=== PATIENT | female | born 1975 | race Caucasian/White ===

== ENCOUNTER → 2016-09-29 | Outpatient (CLI) | payer BC ==
[2016-09-29 13:31] LABS: EKG EKG PERFORMED
[2016-09-29 14:09] LABS: Basophils % (A) 0 %; CH 30.2; CHCM 33.5; Eosinophils # (A) 0.1 k/uL (0-0.7); Eosinophils % (A) 2 %; HCT 39.3 % (34.0-46.0); HDW 2.88; HGB 12.8 gm/dL (11.4-16.0); Luc % (Auto) 1; Lymphocytes # (A) 1.7 k/uL (1.0-4.8); Lymphocytes % (A) 23 %; MCH 29.6 pg (25.0-35.0); MCHC 32.5 g/dL (31.0-37.0); MCV 90.9 fL (80.0-100.0); Mean Platelet Volume 6.5; Monocytes # (A) 0.3 k/uL (0-1.0); Monocytes % (A) 3 %; Neutrophils # (A) 5.2 k/uL (1.3-7.7); Neutrophils % (A) 70 %; RBC 4.33 m/uL (3.80-5.40); RDW 14.4 % (11.5-15.5); WBC 7.4 k/uL (3.8-10.6); WBC (Perox) 7.71
[2016-09-29 14:23] LABS: Blood Urea Nitrogen 39 mg/dL (7-17); Non-African American GFR(MDRD) 20 (>60 ml/min/1.73 sqM); Potassium 4.9 mmol/L (3.5-5.1)
[2016-09-29 14:53] LABS: Hepatitis B Surface Ag Index 0.08
[2016-09-29 14:59] LABS: Hepatitis B Core IgM Index 0.04
[2016-09-29 15:11] LABS: Hepatitis C Virus IgG Index 0.03
[2016-09-29 15:19] LABS: Hepatitis C Virus IgG Ab Negative (Negative)
== END | disposition home or self-care (01) ==
LOC: LABPAT 12:51
PROVIDERS: ATTEND Surgery
DX: Z01.810 Encounter for preprocedural cardiovascular examination (principal); Z01.812 Encounter for preprocedural laboratory examination; I10 Essential (primary) hypertension; R53.83 Other fatigue; N28.9 Disorder of kidney and ureter, unspecified
CPT/HCPCS: 80074; 82565; 84132; 84520; 85025; 93005

== ENCOUNTER 2016-09-30 06:31 | Day surgery (SDC) | payer BC ==
--- NOTE | 2016-09-23 17:11 | P.GSHP ---
History of Present Illness H&P Date: 09/23/16 Chief Complaint: Renal failure Patient seen in the office with complaints of progressive renal failure. 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 Lately she has been symptomatic as it pertains to her renal failure mainly in the area of fatigue. Some swelling as well. She is interested in peritoneal dialysis catheter insertion at this point. She has investigated hemodialysis as well as an option. - Review of Systems Comment: Patient denies any acute changes in hearing or vision, no earache, no headache, no sore throat, no dysphagia, no odynophasia, no chest pain, no shortness of breath, no rectal bleeding, no melena, no recent unexplained weight loss Past Medical History Past Medical History: Diabetes Mellitus, Hyperlipidemia, Hypertension, Musculoskeletal Disorder, Renal Disease Additional Past Medical History / Comment(s): 10/09/14 Pt presented to [facility] ER with c/o kidney infection. Pt was seen in urgent care yesterday and diagnosed with pyelonephritis and given ABX injection, antinausea med and oral ABX. Pt is unable to keep anything down. She has had bilateral back pain the past 3-4 days. She also has had fevers, sweating and chills and vomitting. 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 History of Any Multi-Drug Resistant Organisms: None Reported Past Surgical History: Section, Orthopedic Surgery, Tonsillectomy Additional Past Surgical History / Comment(s): Bilateral ureteral implantations done in [place], L knee arthroscopy, IUD Past Anesthesia/Blood Transfusion Reactions: No Reported Reaction Additional Past Anesthesia/Blood Transfusion Reaction / Comment(s): Pt has never recieved blood. Past Psychological History: Anxiety Additional Psychological History / Comment(s): Pt lives at home with her 2 children. She is normally independent. She uses no assistive devices and has no home care. Smoking Status: Former smoker Past Alcohol Use History: Occasional Additional Past Alcohol Use History / Comment(s): Pt states she quit smoking regularly about 10-11 yrs ago. She will still occasionally smoke a cigarette. She started smoking at age 17 or 18. Past Drug Use History: None Reported - Past Family History Father Family Medical History: Diabetes Mellitus Additional Family Medical History / Comment(s): Father has a pacemaker and is hypoglycemic. Mother Family Medical History: Asthma Sister(s) Family Medical History: Unable to Obtain Daughter(s) Family Medical History: No Reported History Son(s) Family Medical History: No Reported History Medications and Allergies Home Medications Medication Instructions Recorded Confirmed Type Allopurinol [Zyloprim] 100 mg PO DAILY 02/23/14 09/21/16 History Verapamil HCl [Verapamil ER] 180 mg PO HS 02/23/14 09/21/16 History Cetirizine HCl [Zyrtec] 10 mg PO DAILY 10/09/14 09/21/16 History Sertraline [Zoloft] 100 mg PO DAILY 10/09/14 09/21/16 History Fenofibrate [Tricor] 54 mg PO DAILY 07/03/15 09/21/16 History Insulin Glargine,Hum.rec.anlog 35 units SQ DAILY 07/09/15 09/21/16 History [Toujeo Solostar] Dulaglutide [Trulicity] 1.5 mg INJ WEEKLY 03/17/16 09/21/16 History Ergocalciferol [Vitamin D2 50,000 units PO DIRECTED 03/17/16 09/21/16 History (DRISDOL)] Insulin Aspart Protam & Aspart 14 units INJ TID 03/17/16 09/21/16 History [NovoLOG MIX 70-30 Flexpen] Dulaglutide [Trulicity] 1.5 mg SQ WEEKLY 09/14/16 09/21/16 History Multivitamins, Thera [Multivitamin 1 tab PO DAILY 09/14/16 09/21/16 History (formulary)] Sodium Bicarbonate Tab 650 mg PO DAILY 09/14/16 09/21/16 History Allergies Allergy/AdvReac Type Severity Reaction Status Date / Time codeine Allergy HIVES Verified 09/21/16 12:59 Surgical - Exam GENERAL: Well-developed, well-nourished HEENT: Normocephalic, sclera nonicteric, EOM intact, no swelling CHEST: No deformities ABDOMEN: Soft, Obese, nontender, nondistended EXTREMITIES: No deformities, motor grossly intact NEURO: Awake and alert Assessment and Plan (1) Chronic renal failure Narrative/Plan: We'll proceed with peritoneal dialysis catheter insertion. Risks of bleeding, infection, catheter malfunction, bowel injury were discussed. She understands and wishes to proceed. Status: Acute
[2016-09-28 13:41] VITALS: BMI 42.1
[~2016-09-30 06:31] MED LIST: HEPARIN SODIUM,PORCINE 5,000 UNIT/ML 1 ML VIAL SQ ONE; LACTATED RINGERS 1,000 ML IV SCH; LIDOCAINE 1% 20 ML VIAL (10MG/ML) FOR IV START INTRADERMA PRN; ONDANSETRON 4 MG/2 ML VIAL IVP ONE; ceFAZolin 3 GM in SODIUM CHLORIDE 0.9% 100 ML IVPB ONE; fentaNYL (PF) 50 MCG/ML 2 ML AMP IV PRN
[2016-09-30 07:34] LABS: Glucose,Whole Blood 190 mg/dL (75-99)
[2016-09-30] MEDS ORDERED: SUCCINYLCHOLINE CHLORIDE 100 MG/5 ML SYR IV ONE (07:43)
[2016-09-30] MEDS ORDERED: PROPOFOL 10 MG/ML 20 ML VIAL IV ONE (07:43)
[2016-09-30] MEDS ORDERED: HYDROmorphone (PF) 1 MG/ML ONE (07:43)
[2016-09-30] MEDS ORDERED: fentaNYL (PF) 50 MCG/ML 2 ML AMP ONE (07:43)
[2016-09-30] MEDS ORDERED: MIDAZOLAM 2 MG/2 ML VIAL ONE (07:43)
[2016-09-30] MEDS ORDERED: PHENYLEPHRINE-0.9% NACL SYG 1 MG/10 ML SYRINGE ONE (07:43)
[2016-09-30] MEDS ORDERED: BUPIVACAIN-EPI 0.25%-1:200,000 30 ML VIAL SQ ONE ×2 (07:49)
[2016-09-30] MEDS ORDERED: MINERAL OIL 1 APPLIC/ML OIL TOPICAL ONE (07:49)
[2016-09-30 09:05] VITALS: TEMP 98.2
[2016-09-30 09:10] LABS: Glucose,Whole Blood 157 mg/dL (75-99)
[2016-09-30] MEDS ORDERED: NALOXONE 0.4 MG/ML 1 ML VIAL IV PRN (09:29)
[2016-09-30] MEDS ORDERED: HYDROcodone/APAP 5-325MG 1 EACH TAB PO PRN (09:29)
--- NOTE | 2016-09-30 09:31 | P.PCN ---
Date of Procedure: 09/30/16 Procedure(s) Performed: PREOPERATIVE DIAGNOSIS: Renal failure POSTOPERATIVE DIAGNOSIS: Same PROCEDURE: Peritoneal dialysis catheter insertion SURGEON: Gerardo EBL: Minimal ANESTHESIA: Sedation plus local COMPLICATIONS: None OPERATIVE PROCEDURE: The patient was placed in the operative table in the supine position. Her abdomen was prepped and draped in usual sterile fashion. A small horizontal incision was made in the left periumbilical location. Dissection down through the subcutaneous tissues took place using electrocautery. The anterior rectus was divided vertically using the scalpel. The rectus was bluntly. The posterior rectus was visualized. An 0 Vicryl pursestring was placed. A small opening in the posterior rectus fascia and peritoneum took place using a Metzenbaum scissors. There were no adhesions to the suture that was placed. The pigtail catheter was advanced into the pelvis over a stylette. No resistance was met. The inner cuff was secured to the fascia using the 0 Vicryl pursestring that was placed. The catheter was tunneled to an exit site in the left lateral lower quadrant. The catheter was connected to the 1 L bag of saline and approximated 800 mL of saline was easily introduced into the peritoneal cavity. The fluid was then allowed to evacuate. The majority of the fluid was returned. The anterior rectus fascia was then reapproximated using a running 0 Vicryl stitch. The subcutaneous tissues reprepped using 3-0 Vicryl sutures and the skin using 4-0 Monocryl sutures. The outpatient dialysis adapter was applied to the end of the catheter. A sterile dressings then applied after Steri-Strips were placed over the incision. DISPOSITION: Stable to recovery room
[2016-09-30] MEDS ORDERED: traMADol 50 MG TAB PO ONE (09:56)
[2016-09-30 09:59] LABS: Glucose,Whole Blood 166 mg/dL (75-99)
[2016-09-30 10:37] VITALS: BP 97/65; PULSE 69; RESP 20
== END 2016-09-30 10:44 | disposition home or self-care (01) ==
LOC: OR 06:31
PROVIDERS: ATTEND Surgery
DX: I12.9 Hypertensive chronic kidney disease with stage 1 through stage 4 chronic kidney disease, or unspecified chronic kidney disease (principal); N18.9 Chronic kidney disease, unspecified; E11.9 Type 2 diabetes mellitus without complications; E78.5 Hyperlipidemia, unspecified; F41.9 Anxiety disorder, unspecified; E66.9 Obesity, unspecified; Z79.4 Long term (current) use of insulin; Z79.899 Other long term (current) drug therapy; Z88.5 Allergy status to narcotic agent; Z87.891 Personal history of nicotine dependence
CPT/HCPCS: 81025; 49421; C1752; J2250; J1644; J0690; J2405; J3010; J1170; J2370; J0330; J2704

== ENCOUNTER → 2016-12-01 | Outpatient (CLI) | payer BC ==
--- NOTE | 2016-12-01 12:47 | XR ---
EXAMINATION TYPE: XR abdomen 1V DATE OF EXAM: 12/01/2016 COMPARISON: 10/09/2014 HISTORY: Pain TECHNIQUE: Single supine KUB image of the abdomen is obtained FINDINGS: Within the pelvis dialysis catheter is noted in place. IUD is also identified. Small bowel demonstrates no evidence for dilatation or air fluid levels. Gas and fecal material is seen in non-distended colon. No convincing evidence for pneumoperitoneum. Left renal calculus is again noted measuring approximately 4 mm. The lung bases are clear. The osseous structures are intact. IMPRESSION: 1. Overall nonobstructive bowel gas pattern.
== END | disposition home or self-care (01) ==
LOC: RADXRMAIN 10:29
PROVIDERS: ATTEND Surgery
DX: R14.3 Flatulence (principal)
CPT/HCPCS: 74000

== ENCOUNTER → 2018-09-26 | Outpatient (CLI) | payer MEDICARE, OTHER ==
--- NOTE | 2018-09-26 15:20 | XR ---
EXAMINATION TYPE: XR chest 2V DATE OF EXAM: 09/26/2018 COMPARISON: NONE HISTORY: Chest pain TECHNIQUE: Frontal and lateral views of the chest are obtained. FINDINGS: Central venous line is noted with its distal tip overlying the SVC. No evidence for pneumothorax. There is no focal air space opacity. No evidence for pneumothorax. No pleural effusion. The cardiac silhouette size is within normal limits. The osseous structures are grossly intact. IMPRESSION: 1. No acute cardiopulmonary process.
== END ==
LOC: RADXRMAIN 14:56
PROVIDERS: ATTEND Surgery
DX: Z01.818 Encounter for other preprocedural examination (principal)
CPT/HCPCS: 71046

== ENCOUNTER → 2018-10-02 | Outpatient (CLI) | payer MEDICARE, OTHER ==
--- NOTE | 2018-10-02 16:27 | XR ---
EXAMINATION TYPE: XR tibia fibula LT DATE OF EXAM: 10/02/2018 COMPARISON: NONE HISTORY: 43-year-old female pain after fall TECHNIQUE: 2 views FINDINGS: There is a nondisplaced fracture of the fibular head and neck. Corticated density believe the medial malleolus. No other acute fracture is identified. IMPRESSION: Nondisplaced fracture of the fibular head and neck. Correlate as to the mechanism of injury, whether a twisting injury at the ankle in which further assessment of the ankle may be indicated versus direc t impact to the proximal fibula.
== END | disposition home or self-care (01) ==
LOC: RADXRMAIN 15:50
PROVIDERS: ATTEND Nurse Practitioner Adult Health
DX: S82.832A Other fracture of upper and lower end of left fibula, initial encounter for closed fracture (principal)

== ENCOUNTER → 2018-11-15 | Outpatient (CLI) | payer OTHER, MEDICARE ==
--- NOTE | 2018-11-15 14:20 | US ---
EXAMINATION TYPE: US abdomen complete DATE OF EXAM: 11/15/2018 COMPARISON: None CLINICAL HISTORY: 43-year-old female R10.9 Abdominal Pain. Pt states elevated LFT's, recent gastric s urgery, known atrophic left kidney TECHNIQUE: Multiple sonographic images of the abdomen are obtained. FINDINGS: EXAM MEASUREMENTS: Liver Length: 22.0 cm Gallbladder Wall: 0.3 cm CBD: 0.5 cm Spleen: 18.0 cm Right Kidney: 11.1 x 5.8 x 5.4 cm Pancreas: wnl, tail obscured by overlying bowel gas Liver: Enlarged, heterogeneous, difficult to penetrate. This secondarily limits assessment for focal lesion. Gallbladder: wnl Evidence for sonographic Salter's sign: No CBD: wnl Spleen: Enlarged Right Kidney: Lobulated contour, upper and lower poles gassed out Left Kidney: Atrophic, unable to visualize Upper IVC: wnl Abd Aorta: wnl Results called to Tali at Dr's office at time of exam IMPRESSION: 1. Marked hepatomegaly (22.0 cm) with fairly severe hepatic steatosis. 2. No cholelithiasis or biliary ductal dilatation. 3. Splenomegaly (18.0 cm).
== END | disposition home or self-care (01) ==
LOC: RADUSWWP 13:03
PROVIDERS: ATTEND Family Medicine
DX: K76.0 Fatty (change of) liver, not elsewhere classified (principal)
CPT/HCPCS: 76700

== ENCOUNTER → 2018-11-22 | Outpatient (CLI) | payer OTHER, MEDICARE ==
--- NOTE | 2018-11-22 15:57 | NM ---
EXAMINATION TYPE: NM hepatobiliary w EF DATE OF EXAM: 11/22/2018 COMPARISON: NONE HISTORY: Right upper quadrant abdominal pain TECHNIQUE: After the intravenous administration of 3.05 mCi Tc 99m Mebrofenin hepatobiliary scintigra phy is performed. Immediate images post injection. FINDINGS: There is satisfactory initial accumulation of tracer by the liver. The gallbladder is visualized wit hin 90 minutes, delayed enhancement indicative of chronic cholecystitis. The small bowel activity is noted within 34 minutes. At one hour approximately 6 ounces of oral ensure plus is given to mimic C CK and gallbladder ejection fraction is calculated at 26 %, in the normal range. Therefore there is no scintigraphic evidence of cystic or common bile duct obstruction to suggest acute cholecystitis or gallbladder dyskinesia. IMPRESSION: Exam is positive for chronic cholecystitis and biliary dyskinesia with abnormal ejection fraction of only 26%.
== END | disposition home or self-care (01) ==
LOC: RADNMMAIN 12:28
PROVIDERS: ATTEND Family Medicine
DX: K81.1 Chronic cholecystitis (principal); K82.8 Other specified diseases of gallbladder
CPT/HCPCS: 78226; A9537

== ENCOUNTER → 2019-04-19 | Outpatient (CLI) | payer OTHER, MEDICARE ==
--- NOTE | 2019-04-19 09:28 | XR ---
EXAMINATION TYPE: XR Hip LT and AP Pelvis DATE OF EXAM: 04/19/2019 CLINICAL HISTORY: pain TECHNIQUE: AP and frogleg views of the left hip are obtained. Single view of the pelvis is submitted . COMPARISON: None. FINDINGS: There is no acute fracture/dislocation evident. The joint space appears within normal li mits. The overlying soft tissue appears unremarkable. IMPRESSION: 1. There is no acute fracture or dislocation. ICD 10 NO FRACTURE, INITIAL EVALUATION
== END | disposition home or self-care (01) ==
LOC: RADXRMAIN 08:41
PROVIDERS: ATTEND Physician Assistant
DX: R10.2 Pelvic and perineal pain (principal)
CPT/HCPCS: 73502

== ENCOUNTER → 2019-05-03 | Outpatient (CLI) | payer OTHER, MEDICARE ==
--- NOTE | 2019-05-03 11:24 | ECHOS ---
STRESS ECHOCARDIOGRAM INDICATIONS: Diabetes. MEDICATIONS: Eliquis,Sertraline, Sensipar, gabapentin, omeprazole, Trulicity, Humalog, Calcitriol BASELINE HEART RATE: 61 BASELINE BLOOD PRESSURE: 89/48 MAXIMUM HEART RATE: 151 MAXIMUM BLOOD PRESSURE: 141/56 85% MPHR: 151 100% MPHR: 178 METS: 8.1 MAXIMUM STAGE REACHED: 3 TOTAL EXERCISE TIME: 7:00 CLINICAL INFORMATION: Baseline EKG shows sinus rhythm, normal axis, normal intervals. Patient exercised on Ziyad protocol for a total of a total of 7 minutes achieving 8 METS, 85% of predicted maximal heart rate without chest pain or diagnostic ST-segment depression. Baseline echo shows normal left ventricular size, wall motion systolic function. Postexercise, there is normal hyperdynamic response of all segments of myocardium noted. CONCLUSION: 1. Negative stress test by EKG criteria. 2. Average exercise tolerance. 3. Negative stress echo. MMODL / IJN: [id number] /
== END | disposition home or self-care (01) ==
LOC: RADNMMAIN 09:03
PROVIDERS: ATTEND Family Medicine
DX: E11.22 Type 2 diabetes mellitus with diabetic chronic kidney disease (principal)
CPT/HCPCS: 93351

== ENCOUNTER → 2019-09-30 | Outpatient (CLI) | payer MEDICARE, OTHER ==
[2019-09-30 09:44] LABS: HGB 14.7 gm/dL (11.4-16.0); Hypochromasia Slight; MCH 28.5 pg (25.0-35.0); MCV 88.9 fL (80.0-100.0); Mean Platelet Volume 7.4; Platelet Count 186 k/uL (150-450); RBC 5.17 m/uL (3.80-5.40); RDW 13.2 % (11.5-15.5); WBC 2.1 k/uL (3.8-10.6)
[2019-09-30 09:48] LABS: Appearance,Urine Clear (Clear); Bilirubin,Urine Negative (Negative); Blood,Urine Negative (Negative); Color,Urine Yellow; Glucose,Urine (UA) Negative (Negative); Ketones,Urine Negative (Negative); Leukocyte Esterase,Urine Negative (Negative); Nitrite,Urine Negative (Negative); PH, Urine 5.5 (5.0-8.0); Protein,Urine Trace (Negative); Specific Gravity,Urine 1.017 (1.001-1.035); Urobilinogen,Urine <2.0 mg/dL (<2.0)
[2019-09-30 10:02] LABS: Protein/Creatinine Ratio,Urine 0.198
[2019-09-30 10:05] LABS: Band Neutrophils % 9 %; Basophils # (M) 0.04 k/uL (0-0.2); Eosinophils # (M) 0.02 k/uL (0-0.7); Lymphocytes # (M) 1.07 k/uL (1.0-4.8); Metamyelocytes # (M) 0.04 k/uL (0); Metamyelocytes % 2 %; Monocytes # (M) 0.25 k/uL (0-1.0); Neutrophils % (M) 23 %; Nucleated Red Blood Cells 0 /100 WBC (0-0); Total Cells Counted 100
[2019-09-30 10:06] LABS: Poikilocytosis (M) Present
[2019-09-30 15:52] LABS: Urine Creatinine 140.2 mg/dL
[2019-09-30 17:18] LABS: African American GFR (CKD) 45.3 (60.0-200.0); Albumin 4.1 g/dL (3.80-4.90); Anion Gap 7.4 mmol/L (4.00-12.00); BUN/Creat Ratio 14.38 Ratio (12.00-20.00); Calcium 9.3 mg/dL (8.7-10.3); Carbon Dioxide 23.6 mmol/L (21.6-31.8); Non-African American GFR(CKD) 39.1 (60.0-200.0); Phosphorus 4.5 mg/dL (2.4-5.1); Potassium 4.4 mmol/L (3.5-5.5)
== END | disposition home or self-care (01) ==
LOC: LABWHC1 08:11
PROVIDERS: ATTEND Internal Medicine Nephrology
DX: R80.9 Proteinuria, unspecified (principal); B34.9 Viral infection, unspecified; Z94.0 Kidney transplant status; Z51.81 Encounter for therapeutic drug level monitoring
CPT/HCPCS: 36415; 80069; 80197; 81003; 82043; 82570; 84156; 85025

== ENCOUNTER → 2019-10-14 | Outpatient (CLI) | payer MEDICARE, OTHER ==
[2019-10-14 11:53] LABS: Basophils # (A) 0.1 k/uL (0-0.2); Basophils % (A) 2 %; Eosinophils # (A) 0.1 k/uL (0-0.7); Eosinophils % (A) 3 %; HCT 45.3 % (34.0-46.0); HGB 14.7 gm/dL (11.4-16.0); Lymphocytes % (A) 37 %; MCH 28.4 pg (25.0-35.0); MCHC 32.5 g/dL (31.0-37.0); MCV 87.5 fL (80.0-100.0); Mean Platelet Volume 7.4; Monocytes # (A) 0.1 k/uL (0-1.0); Monocytes % (A) 5 %; Neutrophils # (A) 1.4 k/uL (1.3-7.7); Neutrophils % (A) 51 %; Platelet Count 208 k/uL (150-450); RBC 5.18 m/uL (3.80-5.40); RDW 13.5 % (11.5-15.5); WBC 2.7 k/uL (3.8-10.6)
[2019-10-14 16:41] LABS: African American GFR (CKD) 45.3 (60.0-200.0); Albumin 3.9 g/dL (3.80-4.90); Anion Gap 9.1 mmol/L (4.00-12.00); BUN/Creat Ratio 18.75 Ratio (12.00-20.00); Calcium 9.4 mg/dL (8.7-10.3); Carbon Dioxide 25.9 mmol/L (21.6-31.8); Non-African American GFR(CKD) 39.1 (60.0-200.0); Phosphorus 4.8 mg/dL (2.4-5.1); Potassium 4.8 mmol/L (3.5-5.5)
== END | disposition home or self-care (01) ==
LOC: LABWHC1 10:13
PROVIDERS: ATTEND Internal Medicine Nephrology
DX: Z48.22 Encounter for aftercare following kidney transplant (principal); Z94.0 Kidney transplant status; Z51.81 Encounter for therapeutic drug level monitoring
CPT/HCPCS: 36415; 80069; 80197; 85025

== ENCOUNTER → 2020-02-04 | Outpatient (CLI) | payer MEDICARE, OTHER, BC ==
[2020-02-04 16:30] LABS: Chol/HDL Ratio 5.5; LDL Cholesterol,Calculated 142.8 mg/dL (0.0-131.0); VLDL Calculation 55.2 mg/dL (5.00-40.00)
== END | disposition home or self-care (01) ==
LOC: LABWHC1 08:29
PROVIDERS: ATTEND Family Medicine
DX: E78.1 Pure hyperglyceridemia (principal)
CPT/HCPCS: 36415; 80061

== ENCOUNTER → 2020-03-03 | Outpatient (CLI) | payer MEDICARE, OTHER, BC ==
[2020-03-03 10:25] LABS: Appearance,Urine Clear (Clear); Bilirubin,Urine Negative (Negative); Blood,Urine Negative (Negative); Color,Urine Yellow; Glucose,Urine (UA) Negative (Negative); Ketones,Urine Negative (Negative); Leukocyte Esterase,Urine Negative (Negative); Nitrite,Urine Negative (Negative); PH, Urine 5.5 (5.0-8.0); Protein,Urine Trace (Negative)
[2020-03-03 11:26] LABS: Basophils % (A) 2 %; Eosinophils # (A) 0.1 k/uL (0-0.7); Eosinophils % (A) 6 %; HCT 41.1 % (34.0-46.0); HGB 13.6 gm/dL (11.4-16.0); Lymphocytes # (A) 0.8 k/uL (1.0-4.8); Lymphocytes % (A) 58 %; MCH 28.5 pg (25.0-35.0); MCV 86.3 fL (80.0-100.0); Mean Platelet Volume 7.4; Monocytes # (A) 0.2 k/uL (0-1.0); Monocytes % (A) 10 %; Neutrophils % (A) 20 %; Platelet Count 180 k/uL (150-450); RBC 4.76 m/uL (3.80-5.40); RDW 14.2 % (11.5-15.5)
[2020-03-03 13:58] LABS: Neutrophils # (A) 0.3 k/uL (1.3-7.7); WBC 1.4 k/uL (3.8-10.6)
[2020-03-03 17:45] LABS: Hemoglobin A1C 5.8 % (4.0-6.0)
[2020-03-03 19:33] LABS: Urine Creatinine 175.9 mg/dL
[2020-03-03 21:14] LABS: % Iron Saturation 28.21 (12.00-45.00); African American GFR (CKD) 58.2 (60.0-200.0); Albumin 3.9 g/dL (3.80-4.90); Anion Gap 10.2 mmol/L (4.00-12.00); BUN/Creat Ratio 12.31 Ratio (12.00-20.00); Calcium 8.9 mg/dL (8.7-10.3); Carbon Dioxide 24.8 mmol/L (21.6-31.8); Chol/HDL Ratio 4.5; LDL Cholesterol,Calculated 72.4 mg/dL (0.0-131.0); Magnesium 1.5 mg/dL (1.5-2.4); Non-African American GFR(CKD) 50.2 (60.0-200.0); Phosphorus 4.5 mg/dL (2.4-5.1); Potassium 4.4 mmol/L (3.5-5.5); VLDL Calculation 53.6 mg/dL (5.00-40.00)
[2020-03-03 22:07] LABS: Ferritin 2670.4 ng/mL (10.0-291.0)
== END | disposition home or self-care (01) ==
LOC: LABWHC1 09:03
PROVIDERS: ATTEND Nurse Practitioner Family
DX: E55.9 Vitamin D deficiency, unspecified (principal); N25.81 Secondary hyperparathyroidism of renal origin; N39.0 Urinary tract infection, site not specified; D63.1 Anemia in chronic kidney disease; N18.4 Chronic kidney disease, stage 4 (severe); R80.9 Proteinuria, unspecified; E11.9 Type 2 diabetes mellitus without complications
CPT/HCPCS: 36415; 80048; 80061; 81003; 82040; 82043; 82306; 82570; 82728; 83036; 83540; 83550; 83735; 83970; 84100; 85025

== ENCOUNTER → 2020-03-17 | Outpatient (CLI) | payer MEDICARE, OTHER, BC ==
[2020-03-17 15:19] LABS: Folate, Serum 4.7 ng/mL
[2020-03-17 15:48] LABS: Vitamin B12 >4000.0 pg/mL (211-911)
[2020-03-19 08:57] LABS: Methylmalonic Acid 0.17 umol/L (<0.40)
== END | disposition home or self-care (01) ==
LOC: LABWHC1 09:36
PROVIDERS: ATTEND Internal Medicine
DX: D70.9 Neutropenia, unspecified (principal); R16.1 Splenomegaly, not elsewhere classified
CPT/HCPCS: 36415; 82525; 82607; 82746; 83921; 87497

== ENCOUNTER → 2020-03-24 | Outpatient (CLI) | payer MEDICARE, OTHER, BC ==
--- NOTE | 2020-03-24 10:51 | US ---
EXAMINATION TYPE: US abdomen complete DATE OF EXAM: 03/24/2020 COMPARISON: Ultrasound abdomen November 15, 2018 CLINICAL HISTORY: R16.1 SPLENOMEGALY,D70.9 NEUTROPENIA. EXAM MEASUREMENTS: Liver Length: 15.3 cm Gallbladder Wall: Surgically absent CBD: 0.4 cm Spleen: 18.0cm Right Kidney: 8.3 x 4.0 x 3.7 cm Left Kidney: patient born without Transplant kidney: 11.5 x 3.7 x 4.9cm Pancreas: Obscured by bowel gas Liver: mild increase in attenuation Gallbladder: Obscured by overlying bowel gas Evidence for sonographic Salter's sign:no CBD: wnl Spleen: splenomegaly Right Kidney: partially obscured by bowel gas, atrophied, cortical thinning Left Kidney: patient born without left kidney Upper IVC: wnl Abd Aorta: wnl Transplant kidney: wnl The visualized liver is slightly heterogeneous similar to prior without focal mass or ductal dilatati on. No surrounding ascites. The intrahepatic portion of the IVC and visualized abdominal aorta are w ithin normal limits. Gallbladder is not distinctly visualized on current study. Common bile duct is unremarkable. Suboptimal evaluation of pancreas secondary to shadowing from overlying bowel gas. The spleen remains enlarged. No significant change from prior. Nonvisualization of left kidney similar t o prior. No renal lesions or hydronephrosis is seen in the right pelvic transplant. IMPRESSION: Stable splenomegaly.
== END | disposition home or self-care (01) ==
LOC: RADUSWWP 07:05
PROVIDERS: ATTEND Internal Medicine
DX: R16.1 Splenomegaly, not elsewhere classified (principal)
CPT/HCPCS: 76700

== ENCOUNTER → 2020-05-12 | Outpatient (CLI) | payer MEDICARE, BC ==
[2020-05-12 12:30] LABS: Basophils % (A) 1 %; Eosinophils # (A) 0.1 k/uL (0-0.7); Eosinophils % (A) 1 %; HCT 42.5 % (34.0-46.0); Lymphocytes # (A) 1.1 k/uL (1.0-4.8); Lymphocytes % (A) 17 %; MCH 28.3 pg (25.0-35.0); MCHC 32.9 g/dL (31.0-37.0); MCV 86.1 fL (80.0-100.0); Mean Platelet Volume 6.8; Monocytes # (A) 0.2 k/uL (0-1.0); Monocytes % (A) 3 %; Neutrophils # (A) 5.2 k/uL (1.3-7.7); Neutrophils % (A) 78 %; Platelet Count 194 k/uL (150-450); RBC 4.94 m/uL (3.80-5.40); RDW 14.2 % (11.5-15.5); WBC 6.7 k/uL (3.8-10.6)
[2020-05-12 21:16] LABS: African American GFR (CKD) 58.2 (60.0-200.0); Albumin 4.4 g/dL (3.80-4.90); Anion Gap 5.1 mmol/L (4.00-12.00); BUN/Creat Ratio 14.62 Ratio (12.00-20.00); Calcium 9.4 mg/dL (8.7-10.3); Carbon Dioxide 27.9 mmol/L (21.6-31.8); Non-African American GFR(CKD) 50.2 (60.0-200.0); Phosphorus 3.9 mg/dL (2.4-5.1); Potassium 4.4 mmol/L (3.5-5.5)
== END | disposition home or self-care (01) ==
LOC: LABWHC1 10:46
PROVIDERS: ATTEND Internal Medicine Nephrology
DX: B34.8 Other viral infections of unspecified site (principal); Z94.0 Kidney transplant status
CPT/HCPCS: 36415; 80069; 80197; 85025

== ENCOUNTER → 2020-05-26 | Outpatient (CLI) | payer MEDICARE, BC ==
[2020-05-26 11:14] LABS: Basophils # (A) 0.1 k/uL (0-0.2); Basophils % (A) 1 %; Eosinophils # (A) 0.1 k/uL (0-0.7); Eosinophils % (A) 1 %; HCT 39.7 % (34.0-46.0); HGB 13.6 gm/dL (11.4-16.0); Lymphocytes # (A) 1.1 k/uL (1.0-4.8); Lymphocytes % (A) 18 %; MCH 29.5 pg (25.0-35.0); MCHC 34.3 g/dL (31.0-37.0); MCV 86.1 fL (80.0-100.0); Mean Platelet Volume 7.1; Monocytes # (A) 0.3 k/uL (0-1.0); Monocytes % (A) 5 %; Neutrophils # (A) 4.2 k/uL (1.3-7.7); Neutrophils % (A) 74 %; Platelet Count 172 k/uL (150-450); RBC 4.61 m/uL (3.80-5.40); RDW 13.9 % (11.5-15.5); WBC 5.7 k/uL (3.8-10.6)
[2020-05-26 11:50] LABS: Appearance,Urine Clear (Clear); Bilirubin,Urine Negative (Negative); Blood,Urine Negative (Negative); Color,Urine Yellow; Glucose,Urine (UA) Negative (Negative); Ketones,Urine Negative (Negative); Leukocyte Esterase,Urine Negative (Negative); Nitrite,Urine Negative (Negative); PH, Urine 5.5 (5.0-8.0); Protein,Urine Trace (Negative); Specific Gravity,Urine 1.022 (1.001-1.035)
[2020-05-26 12:03] LABS: Creatinine,Urine Random 177.3 mg/dL; Protein/Creatinine Ratio,Urine 0.09
[2020-05-26 20:52] LABS: ALT 15 U/L (8-44); AST 12 U/L (13-35); African American GFR (CKD) 53.2 (60.0-200.0); Alkaline Phosphatase 87 U/L (41-126); BUN/Creat Ratio 15.71 Ratio (12.00-20.00); Bilirubin, Conjugated <0.20 mg/dL (0.20-0.40); Calcium 9.3 mg/dL (8.7-10.3); Chloride 107 mmol/L (96-109); Chol/HDL Ratio 5.41; Cholesterol 211 mg/dL (0-200); Glucose 226 mg/dL (70-110); Magnesium 1.6 mg/dL (1.5-2.4); Non-African American GFR(CKD) 45.9 (60.0-200.0); Phosphorus 3.4 mg/dL (2.4-5.1); Potassium 4.6 mmol/L (3.5-5.5); Sodium 140 mmol/L (135-145); Total Bilirubin 0.4 mg/dL (0.2-1.2); Total Protein 6.2 g/dL (6.2-8.2)
[2020-05-27 08:06] LABS: Creatinine,Urine Random 169.7 mg/dL
[2020-05-27 08:56] LABS: Total Protein,Urine Random 26.6 mg/dL (0.0-13.5)
[2020-05-27 18:16] LABS: Urine Creatinine 170.2 mg/dL
== END | disposition home or self-care (01) ==
LOC: LABWHC1 10:25
PROVIDERS: ATTEND Internal Medicine Nephrology
DX: E55.9 Vitamin D deficiency, unspecified (principal); E78.5 Hyperlipidemia, unspecified; D84.9 Immunodeficiency, unspecified; B34.8 Other viral infections of unspecified site; Z94.0 Kidney transplant status
CPT/HCPCS: 36415; 80061; 80069; 80076; 80197; 81003; 82043; 82306; 82570; 83721; 83735; 83970; 84156; 85025

== ENCOUNTER → 2020-06-16 | Outpatient (CLI) | payer MEDICARE, BC ==
[2020-06-16 09:55] LABS: Basophils % (A) 1 %; Eosinophils # (A) 0.1 k/uL (0-0.7); Eosinophils % (A) 2 %; HCT 40.2 % (34.0-46.0); HGB 13.4 gm/dL (11.4-16.0); Lymphocytes # (A) 1.2 k/uL (1.0-4.8); Lymphocytes % (A) 21 %; MCH 29.1 pg (25.0-35.0); MCHC 33.3 g/dL (31.0-37.0); MCV 87.4 fL (80.0-100.0); Mean Platelet Volume 7.6; Monocytes # (A) 0.3 k/uL (0-1.0); Monocytes % (A) 5 %; Neutrophils % (A) 71 %; Platelet Count 185 k/uL (150-450); RBC 4.61 m/uL (3.80-5.40); WBC 5.6 k/uL (3.8-10.6)
[2020-06-16 11:06] LABS: Creatinine,Urine Random 162.3 mg/dL; Protein/Creatinine Ratio,Urine 0.08
[2020-06-16 14:52] LABS: African American GFR (CKD) 64.1 (60.0-200.0); Albumin 4.2 g/dL (3.80-4.90); Anion Gap 8.3 mmol/L (4.00-12.00); BUN/Creat Ratio 11.67 Ratio (12.00-20.00); Calcium 9.2 mg/dL (8.7-10.3); Carbon Dioxide 27.7 mmol/L (21.6-31.8); Globulin 2.1 g/dL (1.6-3.3); Non-African American GFR(CKD) 55.3 (60.0-200.0); Phosphorus 4.6 mg/dL (2.4-5.1); Potassium 3.9 mmol/L (3.5-5.5); Total Bilirubin 0.5 mg/dL (0.2-1.2); Total Protein 6.3 g/dL (6.2-8.2)
== END | disposition home or self-care (01) ==
LOC: LABWHC1 09:03
PROVIDERS: ATTEND Internal Medicine Nephrology
DX: D64.9 Anemia, unspecified (principal); R80.9 Proteinuria, unspecified; Z94.0 Kidney transplant status
CPT/HCPCS: 36415; 80053; 80197; 82465; 82570; 84100; 84156; 85025

== ENCOUNTER → 2020-11-26 | Outpatient (CLI) | payer MEDICARE | END | disposition home or self-care (01) | LOC: LABWHC1 11:45 | PROVIDERS: ATTEND Internal Medicine Nephrology | DX: B34.8 Other viral infections of unspecified site (principal); Z94.0 Kidney transplant status | CPT/HCPCS: 36415 ==

== ENCOUNTER → 2020-12-25 | Outpatient (CLI) | payer MEDICARE | END | disposition home or self-care (01) | LOC: LABWHC1 07:42 | PROVIDERS: ATTEND Internal Medicine Nephrology | DX: Z94.0 Kidney transplant status (principal) | CPT/HCPCS: 36415; 80197 ==

== ENCOUNTER 2021-04-17 18:21 | Observation (INO) | payer MEDICARE ==
[2021-04-17] MEDS ORDERED: ALBUTEROL HFA INHALER INHALATION STA (20:43)
[2021-04-17] MEDS ORDERED: SODIUM CHLORIDE 0.9% 1,000 ML IV STA ×2 (20:44→23:22)
--- NOTE | 2021-04-17 20:46 | ED ---
General Adult HPI - General Chief complaint: Recheck/Abnormal Lab/Rx Stated complaint: high blood sugar, covid symptoms, transplant pt Time Seen by Provider: 04/17/21 20:00 Source: patient, family, RN notes reviewed Mode of arrival: ambulatory Limitations: no limitations - History of Present Illness Initial comments: Patient is a pleasant 45-year-old female presenting to the emergency Department with complaints of high blood sugars. Patient has not been feeling well for the past one week. Patient has had some fevers. Patient has some minimal dyspnea. Mild cough. Patient has minimal congestion. Patient does have loss of taste and smell. Decreased appetite. Some nausea and vomiting. Some diarrhea. Patient went to her doctor yesterday and was tested for covert however results are still pending. Patient was started on antibiotic and steroid. Blood sugars have been running high. Blood sugars last couple of days have been between 2 an d 300s however today right high more than once. Blood sugar prior to arrival was still at 400. - Related Data Home Medications Medication Instructions Recorded Confirmed Cetirizine HCl [Zyrtec] 10 mg PO DAILY 10/09/14 04/17/21 Sertraline [Zoloft] 150 mg PO DAILY 10/09/14 04/17/21 Multivitamins, Thera [Multivitamin 1 tab PO DAILY 09/14/16 04/17/21 (formulary)] Acetaminophen Tab [Tylenol] 650 mg PO BID PRN 04/17/21 04/17/21 Atorvastatin [Lipitor] 20 mg PO DAILY 04/17/21 04/17/21 Azithromycin [Zithromax] 500 mg PO DAILY 04/17/21 04/17/21 Biotin [Biotin Disolve] 10,000 mcg PO DAILY 04/17/21 04/17/21 Dexamethasone 6 mg PO DAILY 04/17/21 04/17/21 Fluconazole [Diflucan] 100 mg PO DAILY 04/17/21 04/17/21 Gabapentin [Neurontin] 300 mg PO BID 04/17/21 04/17/21 Insulin Aspart (For Pump) [NovoLOG 0.01 unit SQ-PUMP CONTINUOUS 04/17/2104/17 (For Pump)] Lisinopril [Prinivil] 10 mg PO DAILY 04/17/21 04/17/21 Mycophenolate Mofetil [Cellcept] 1,000 mg PO DIRECTED 04/17/21 04/17/21 Mycophenolate Mofetil [Cellcept] 500 mg PO DIRECTED 04/17/21 04/17/21 NIFEdipine XL [Procardia XL] 60 mg PO DAILY 04/17/21 04/17/21 Omeprazole 20 mg PO DAILY 04/17/21 04/17/21 Tacrolimus [Envarsus Xr] 6 mg PO DIRECTED 04/17/21 04/17/21 predniSONE 5 mg PO DIRECTED 04/17/21 04/17/21 Allergies Allergy/AdvReac Type Severity Reaction Status Date / Time codeine Allergy HIVES Verified 04/17/21 22:53 Review of Systems ROS Statement: Those systems with pertinent positive or pertinent negative responses have been documented in the HPI. ROS Other: All systems not noted in ROS Statement are negative. Constitutional: Reports: fever, chills Eyes: Denies: eye pain ENT: Denies: ear pain Respiratory: Reports: cough Cardiovascular: Denies: chest pain Endocrine: Reports: fatigue Gastrointestinal: Reports: nausea, vomiting, diarrhea. 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 History of Any Multi-Drug Resistant Organisms: None Reported Past Surgical History: Section, Orthopedic Surgery, Tonsillectomy Additional Past Surgical History / Comment(s): Bilateral ureteral implantations done in [place], L knee arthroscopy, kidney transplant 2019 Past Anesthesia/Blood Transfusion Reactions: No Reported Reaction Additional Past Anesthesia/Blood Transfusion Reaction / Comment(s): Pt has never recieved blood. Past Psychological History: Anxiety Smoking Status: Never smoker Past Alcohol Use History: Occasional Past Drug Use History: None Reported - Past Family History Father Family Medical History: Diabetes Mellitus Additional Family Medical History / Comment(s): Father has a pacemaker and is hypoglycemic. Mother Family Medical History: Asthma Sister(s) Family Medical History: Unable to Obtain Daughter(s) Family Medical History: No Reported History Son(s) Family Medical History: No Reported History General Exam Limitations: no limitations General appearance: alert, in no apparent distress Head exam: Present: normocephalic Eye exam: Present: normal appearance, PERRL Neck exam: Present: normal inspection Respiratory exam: Present: normal lung sounds bilaterally Cardiovascular Exam: Present: regular rate, normal rhythm GI/Abdominal exam: Present: soft. Absent: tenderness Extremities exam: Present: normal inspection. Absent: pedal edema, calf tenderness Neurological exam: Present: alert Psychiatric exam: Present: normal affect, normal mood Skin exam: Present: normal color Course Vital Signs 04/17/21 19:14 Temperature 98.5 F Pulse Rate 103 H Respiratory 22 Rate Blood Pressure 102/70 O2 Sat by Pulse 98 Oximetry Medical Decision Making - Medical Decision Making Case discussed with nephrology Dr. Cowan who would like patient to have monoclonal antibodies. He also recommends admission for IV fluids, glucose control and antibiotics for potential pneumonia. Patient reevaluated and updated. Case discussed with Dr. ruiz, who will admit covering for Dr. Vail. - Lab Data Result diagrams: 04/17/21 21:34 04/17/21 21:34 Lab Results 04/17/21 04/17/21 04/17/21 Range/Units 21:34 21:34 21:34 WBC 1.7 L (3.8-10.6) k/uL RBC 4.47 (3.80-5.40) m/uL Hgb 13.1 (11.4-16.0) gm/dL Hct 38.9 (34.0-46.0) % MCV 87.1 (80.0-100.0) fL MCH 29.3 (25.0-35.0) pg MCHC 33.6 (31.0-37.0) g/dL RDW 12.9 (11.5-15.5) % Plt Count 81 L (150-450) k/uL MPV 9.5 Neutrophils % 79 % Lymphocytes % 16 % Monocytes % 5 % Eosinophils % 0 % Basophils % 0 % Neutrophils # 1.4 (1.3-7.7) k/uL Lymphocytes # 0.3 L (1.0-4.8) k/uL Monocytes # 0.1 (0-1.0) k/uL Eosinophils # 0.0 (0-0.7) k/uL Basophils # 0.0 (0-0.2) k/uL Manual Slide Review Performed Large Platelets Present PT 9.5 (9.0-12.0) sec INR 0.9 (<1.2) APTT 20.3 L (22.0-30.0) sec Sodium 132 L (137-145) mmol/L Potassium 5.1 (3.5-5.1) mmol/L Chloride 106 (98-107) mmol/L Carbon Dioxide 17 L (22-30) mmol/L Anion Gap 9 mmol/L BUN 27 H (7-17) mg/dL Creatinine 1.42 H (0.52-1.04) mg/dL Est GFR (CKD-EPI)AfAm 52 (>60 ml/min/1.73 sqM) Est GFR (CKD-EPI)NonAf 45 (>60 ml/min/1.73 sqM) Glucose 424 H (74-99) mg/dL Plasma Lactic Acid Ru (0.7-2.0) mmol/L Calcium 8.4 (8.4-10.2) mg/dL Magnesium 1.5 L (1.6-2.3) mg/dL Total Bilirubin 0.4 (0.2-1.3) mg/dL AST 26 (14-36) U/L ALT 28 (4-34) U/L Alkaline Phosphatase 85 (38-126) U/L Lactate Dehydrogenase 567 (313-618) U/L C-Reactive Protein 2.3 H (<1.0) mg/dL Total Protein 6.9 (6.3-8.2) g/dL Albumin 3.9 (3.5-5.0) g/dL Acetone, Qual Negative (Negative) Coronavirus (PCR) (Not Detectd) 04/17/21 04/17/21 Range/Units 21:34 21:34 WBC (3.8-10.6) k/uL RBC (3.80-5.40) m/uL Hgb (11.4-16.0) gm/dL Hct (34.0-46.0) % MCV (80.0-100.0) fL MCH (25.0-35.0) pg MCHC (31.0-37.0) g/dL RDW (11.5-15.5) % Plt Count (150-450) k/uL MPV Neutrophils % % Lymphocytes % % Monocytes % % Eosinophils % % Basophils % % Neutrophils # (1.3-7.7) k/uL Lymphocytes # (1.0-4.8) k/uL Monocytes # (0-1.0) k/uL Eosinophils # (0-0.7) k/uL Basophils # (0-0.2) k/uL Manual Slide Review Large Platelets PT (9.0-12.0) sec INR (<1.2) APTT (22.0-30.0) sec Sodium (137-145) mmol/L Potassium (3.5-5.1) mmol/L Chloride (98-107) mmol/L Carbon Dioxide (22-30) mmol/L Anion Gap mmol/L BUN (7-17) mg/dL Creatinine (0.52-1.04) mg/dL Est GFR (CKD-EPI)AfAm (>60 ml/min/1.73 sqM) Est GFR (CKD-EPI)NonAf (>60 ml/min/1.73 sqM) Glucose (74-99) mg/dL Plasma Lactic Acid Ru 1.3 (0.7-2.0) mmol/L Calcium (8.4-10.2) mg/dL Magnesium (1.6-2.3) mg/dL Total Bilirubin (0.2-1.3) mg/dL AST (14-36) U/L ALT (4-34) U/L Alkaline Phosphatase (38-126) U/L Lactate Dehydrogenase (313-618) U/L C-Reactive Protein (<1.0) mg/dL Total Protein (6.3-8.2) g/dL Albumin (3.5-5.0) g/dL Acetone, Qual (Negative) Coronavirus (PCR) Detected A (Not Detectd) - Radiology Data Radiology results: image reviewed (Chest x-ray shows right lower lobe infiltrate) Disposition Clinical Impression: COVID-19, Chronic renal failure, Hyperglycemia Disposition: ADMITTED IP TO THIS HOSP Is patient prescribed a controlled substance at d/c from ED?: No Referrals: José Antonio Vail MD [Primary Care Provider] - 1-2 days Decision Time: 23:37
--- NOTE | 2021-04-17 21:05 | XR ---
EXAMINATION TYPE: XR chest 1V portable DATE OF EXAM: 04/17/2021 COMPARISON: 09/26/2018 HISTORY: Pneumonia TECHNIQUE: FINDINGS: Heart and mediastinum are normal. There is some infiltrate at the right lung base. There ar e no hilar masses. Costophrenic angles are clear. Bony thorax is intact. IMPRESSION: Mild infiltrate at the right lung base. No active cardiopulmonary disease. Infiltrate marcy ears new compared to old exam.
[2021-04-17] MEDS ORDERED: ACETAMINOPHEN TAB 500 MG TAB PO STA (21:53)
[2021-04-17 22:02] LABS: Basophils % (A) 0 %; Eosinophils % (A) 0 %; HCT 38.9 % (34.0-46.0); HGB 13.1 gm/dL (11.4-16.0); Lymphocytes # (A) 0.3 k/uL (1.0-4.8); Lymphocytes % (A) 16 %; MCH 29.3 pg (25.0-35.0); MCHC 33.6 g/dL (31.0-37.0); MCV 87.1 fL (80.0-100.0); Mean Platelet Volume 9.5; Monocytes # (A) 0.1 k/uL (0-1.0); Monocytes % (A) 5 %; Neutrophils # (A) 1.4 k/uL (1.3-7.7); Neutrophils % (A) 79 %; RBC 4.47 m/uL (3.80-5.40); RDW 12.9 % (11.5-15.5); WBC 1.7 k/uL (3.8-10.6)
[2021-04-17 22:10] LABS: INR 0.9 (<1.2); Prothrombin Time 9.5 sec (9.0-12.0)
[2021-04-17 22:24] LABS: ALT 28 U/L (4-34); AST 26 U/L (14-36); African American GFR (CKD) 52 (>60 ml/min/1.73 sqM); Albumin 3.9 g/dL (3.5-5.0); Alkaline Phosphatase 85 U/L (38-126); Anion Gap 9 mmol/L; Blood Urea Nitrogen 27 mg/dL (7-17); C Reactive Protein 2.3 mg/dL (<1.0); Calcium 8.4 mg/dL (8.4-10.2); Carbon Dioxide 17 mmol/L (22-30); Chloride 106 mmol/L (98-107); Glucose 424 mg/dL (74-99); LDH 567 U/L (313-618); Magnesium 1.5 mg/dL (1.6-2.3); Non-African American GFR(CKD) 45 (>60 ml/min/1.73 sqM); Potassium 5.1 mmol/L (3.5-5.1); Sodium 132 mmol/L (137-145); Total Bilirubin 0.4 mg/dL (0.2-1.3); Total Protein 6.9 g/dL (6.3-8.2)
[2021-04-17] MEDS ORDERED: INSULIN REGULAR 100 UNIT/ML VIAL (IV) IV ONE (22:34)
[2021-04-17 22:41] LABS: Partial Thromboplastin Time 20.3 sec (22.0-30.0)
[2021-04-17 23:18] LABS: Large Platelets Present
[2021-04-17 23:19] LABS: Platelet Count 81 k/uL (150-450)
[2021-04-17] MEDS ORDERED: PIPERACILLIN-TAZOBACTAM 3.375 GM in SODIUM CHLORIDE 0.9% 100 ML IVPB STA (23:23)
[2021-04-17] MEDS ORDERED: AZITHROMYCIN 500 MG in SODIUM CHLORIDE 0.9% 250 ML IVPB STA (23:23)
[2021-04-17] MEDS ORDERED: PNEUMONIA PROTOCOL UTILIZED 1 EACH MISC PO PRN (23:23)
[2021-04-17] MEDS ORDERED: ACETAMINOPHEN TAB 325 MG TAB PO PRN (23:40)
[2021-04-17] MEDS ORDERED: NALOXONE 0.4 MG/ML 1 ML VIAL IV PRN (23:40)
[2021-04-17] MEDS ORDERED: MAGNESIUM OXIDE 400 MG TAB PO STA (23:40)
[2021-04-17] MEDS ORDERED: SODIUM CHLORIDE 0.9% 50 ML IVPB ONE (23:45)
[2021-04-17] MEDS ORDERED: BAMLANIVIMAB (EUA) 700 MG, ETESEVIMAB (EUA) 1,400 MG in SODIUM CHLORIDE 0.9% 50 ML IVPB ONE ×6 (23:45)
[2021-04-18 00:21] LABS: Glucose,Whole Blood 354 mg/dL (75-99)
[2021-04-18] MEDS ORDERED: INSULIN DETEMIR (LEVEMIR) 100 UNIT/ML SYR SQ SCH ×2 (02:27→21:00)
--- NOTE | 2021-04-18 02:30 | P.HPIM ---
History of Present Illness H&P Date: 04/18/21 The patient is a 45-year-old female with a PMH of end-stage renal disease status post kidney transplant on May 2019, type II DM on insulin pump, hypertension, and hyperlipidemia who presents to the emergency room with complaints of malaise, cough, fever, and anosmia. The patient reports that her symptoms started roughly a week ago when she felt more tired than usual and then progressed to intermittent fevers controlled with Tylenol. She then lost her sense of smell yesterday at which time she decided to go see her primary care physician started her on oral steroids and oral antibiotics and sent a rapid coronavirus test which had not resulted yet. The patient reports however that her blood sugars at home continued to run high due to which she decided to come to the emergency room. The patient is vaccinated for COVID-19 with [employer] dual dose and received a booster shot in January 2021. She reports that her cough is nonproductive. She also reported bilateral lower rib pains. She denied substernal chest discomfort or shortness of breath. Also reports a poor appetite with occasional watery stools and vomiting over the past 1 week. Denied headaches, weakness, numbness, tingling, visual disturbances. She underwent an extensive evaluation in the emergency room with a chest x-ray that revealed a mild infiltrate at the right lung base with laboratory evaluation remarkable for WBC count of 1.7, platelet count 81, sodium 132, CO2 17, BUN 27, creatinine 1.42, glucose 424, and coronavirus PCR positive with magnesium 1.5 and lactic acid 1.3. Review of systems: Pertinent positives and negatives as discussed in HPI, a complete review of systems was performed and all other systems are negative. Physical examination: General: non toxic, no distress, appears at stated age, obese Derm: no unusual rashes/lesions no unusual ecchymoses, warm, dry Head: atraumatic, normocephalic, symmetric Eyes: EOMI, no lid lag, anicteric sclera, pupils equal round reactive to light ENT: Nose and ears atraumatic, no thrush, no pharyngeal erythema Neck: No thyromegaly, no cervical lymphadenopathy, trachea midline, supple Mouth: no lip lesion, mucus membranes moist Cardiovascular: S1S2 reg, no murmur, positive posterior tibial pulse bilateral, no edema, capillary refill less than 2 seconds Lungs: CTA bilateral, no rhonchi, no rales , no accessory muscle use Abdominal: soft, nontender to palpation, no guarding, no appreciable organomegaly, normal bowel sounds Ext: no gross muscle atrophy, muscle strength 5 out of 5 in all 4 extremities grossly, no contractures, Neuro: CN II-XI grossly intact, light touch intact all 4 extremities, finger to nose within normal limits, Psych: Alert, oriented, appropriate affect Assessment/plan COVID-19 pneumonia -Bamlanivimab ordered for the patient in the emergency room -Continue with azithromycin and ceftriaxone for suspected bacterial pneumonia -Follow up pro-calcitonin levels -IV fluids -Continue with steroids -Follow-up blood cultures Acute kidney injury in setting of renal transplant -Continue with IV fluids -Nephrology consulted -Hold Lisinopril at this time Type II DM with hyperglycemia on insulin pump -The patient does not have her pump supplies -Discontinue the pump at this time -Basal rate 0.5 units per hour as per patient -Start patient on Levemir 12 units daily at bedtime with sliding scale for steroids Hypomagnesemia -Replace and monitor Bicytopenia -Suspected secondary to ongoing infection -Monitor for now Other conditions: Kidney transplant, hypertension, hyperlipidemia -Continue with home meds DVT prophylaxis -IPCDs The patient is admitted with an anticipated less than 2 midnight stay for evalua tion of COVID pneumonia. 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 History of Any Multi-Drug Resistant Organisms: None Reported Past Surgical History: Section, Orthopedic Surgery, Tonsillectomy Additional Past Surgical History / Comment(s): Bilateral ureteral implantations done in [place], L knee arthroscopy, kidney transplant 2019 Past Anesthesia/Blood Transfusion Reactions: No Reported Reaction Additional Past Anesthesia/Blood Transfusion Reaction / Comment(s): Pt has never recieved blood. Past Psychological History: Anxiety Smoking Status: Never smoker Past Alcohol Use History: Occasional Past Drug Use History: None Reported - Past Family History Father Family Medical History: Diabetes Mellitus Additional Family Medical History / Comment(s): Father has a pacemaker and is hypoglycemic. Mother Family Medical History: Asthma Sister(s) Family Medical History: Unable to Obtain Daughter(s) Family Medical History: No Reported History Son(s) Family Medical History: Hypertension Medications and Allergies Home Medications Medication Instructions Recorded Confirmed Type Cetirizine HCl [Zyrtec] 10 mg PO DAILY 10/09/14 04/17/21 History Sertraline [Zoloft] 150 mg PO DAILY 10/09/14 04/17/21 History Multivitamins, Thera [Multivitamin 1 tab PO DAILY 09/14/16 04/17/21 History (formulary)] Acetaminophen Tab [Tylenol] 650 mg PO BID PRN 04/17/21 04/17/21 History Atorvastatin [Lipitor] 20 mg PO DAILY 04/17/21 04/17/21 History Azithromycin [Zithromax] 500 mg PO DAILY 04/17/21 04/17/21 History Biotin [Biotin Disolve] 10,000 mcg PO DAILY 04/17/21 04/17/21 History Dexamethasone 6 mg PO DAILY 04/17/21 04/17/21 History Fluconazole [Diflucan] 100 mg PO DAILY 04/17/21 04/17/21 History Gabapentin [Neurontin] 300 mg PO BID 04/17/21 04/17/21 History Insulin Aspart (For Pump) [NovoLOG 0.01 unit SQ-PUMP CONTINUOUS 04/17/21 04/17/21 History (For Pump)] Lisinopril [Prinivil] 10 mg PO DAILY 04/17/21 04/17/21 History Mycophenolate Mofetil [Cellcept] 1,000 mg PO DIRECTED 04/17/21 04/17/21 History Mycophenolate Mofetil [Cellcept] 500 mg PO DIRECTED 04/17/21 04/17/21 History NIFEdipine XL [Procardia XL] 60 mg PO DAILY 04/17/21 04/17/21 History Omeprazole 20 mg PO DAILY 04/17/21 04/17/21 History Tacrolimus [Envarsus Xr] 6 mg PO DIRECTED 04/17/21 04/17/21 History predniSONE 5 mg PO DIRECTED 04/17/21 04/17/21 History Allergies Allergy/AdvReac Type Severity Reaction Status Date / Time codeine Allergy HIVES Verified 04/17/21 22:53 Physical Exam Vitals: Vital Signs Temp Pulse Resp BP Pulse Ox 04/18/21 00:22 98.3 F 70 18 100/64 97 04/17/21 19:14 98.5 F 103 H 22 102/70 98 Intake and Output 04/17/21 04/17/21 04/18/21 14:59 22:59 06:59 Other: Weight 113.398 kg Results CBC & Chem 7: 04/17/21 21:34 04/17/21 21:34 Labs: Abnormal Lab Results - Last 24 Hours (Table) 04/17/21 04/17/21 04/17/21 Range/Units 21:34 21:34 21:34 WBC 1.7 L (3.8-10.6) k/uL Plt Count 81 L (150-450) k/uL Lymphocytes # 0.3 L (1.0-4.8) k/uL APTT 20.3 L (22.0-30.0) sec Sodium 132 L (137-145) mmol/L Carbon Dioxide 17 L (22-30) mmol/L BUN 27 H (7-17) mg/dL Creatinine 1.42 H (0.52-1.04) mg/dL Glucose 424 H (74-99) mg/dL POC Glucose (mg/dL) (75-99) mg/dL Magnesium 1.5 L (1.6-2.3) mg/dL C-Reactive Protein 2.3 H (<1.0) mg/dL Coronavirus (PCR) (Not Detectd) 04/17/21 04/18/21 Range/Units 21:34 00:20 WBC (3.8-10.6) k/uL Plt Count (150-450) k/uL Lymphocytes # (1.0-4.8) k/uL APTT (22.0-30.0) sec Sodium (137-145) mmol/L Carbon Dioxide (22-30) mmol/L BUN (7-17) mg/dL Creatinine (0.52-1.04) mg/dL Glucose (74-99) mg/dL POC Glucose (mg/dL) 354 H (75-99) mg/dL Magnesium (1.6-2.3) mg/dL C-Reactive Protein (<1.0) mg/dL Coronavirus (PCR) Detected A (Not Detectd)
[2021-04-18 02:47] LABS: Glucose,Whole Blood 342 mg/dL (75-99)
[2021-04-18] MEDS: MAGNESIUM SULFATE-D5W PMX 1 GM in DEXTROSE/WATER 1 100ML.BAG IVPB SCH ×2 (04:00→05:15)
[2021-04-18 06:27] LABS: Basophils % (A) 0 %; Eosinophils % (A) 1 %; HCT 35.3 % (34.0-46.0); HGB 11.5 gm/dL (11.4-16.0); Lymphocytes # (A) 0.3 k/uL (1.0-4.8); Lymphocytes % (A) 15 %; MCH 28.4 pg (25.0-35.0); MCHC 32.5 g/dL (31.0-37.0); MCV 87.6 fL (80.0-100.0); Mean Platelet Volume 9.4; Monocytes # (A) 0.1 k/uL (0-1.0); Monocytes % (A) 4 %; Neutrophils # (A) 1.3 k/uL (1.3-7.7); Neutrophils % (A) 78 %; RBC 4.03 m/uL (3.80-5.40); WBC 1.7 k/uL (3.8-10.6)
[2021-04-18 06:32] LABS: Platelet Count 69 k/uL (150-450)
[2021-04-18 06:45] LABS: Albumin 3.3 g/dL (3.5-5.0); Magnesium 2.2 mg/dL (1.6-2.3); Potassium 4.6 mmol/L (3.5-5.1); Total Bilirubin 0.5 mg/dL (0.2-1.3); Total Protein 6.1 g/dL (6.3-8.2)
[2021-04-18 07:06] LABS: Glucose,Whole Blood 374 mg/dL (75-99)
[2021-04-18] MEDS ORDERED: INSULIN ASPART (NovoLOG) 100 UNIT/ML VIAL SQ ONE ×2 (08:15→18:30)
[2021-04-18] MEDS ORDERED: SODIUM CHLORIDE 0.9% 1,000 ML IV ONE (08:16)
--- NOTE | 2021-04-18 08:48 | XR ---
EXAMINATION TYPE: XR chest 1V DATE OF EXAM: 04/18/2021 COMPARISON: 04/17/2021 HISTORY: 45 years Female. STUDY INDICATION GIVEN: pneumonia . TECHNIQUE: AP chest radiograph IMPRESSION: Right lower lobe airspace opacity without significant change. No pneumothorax or pleural effusion. Normal cardiomediastinal silhouette. Unremarkable osseous structures and upper abdomen.
[2021-04-18] MEDS: MULTIVITAMINS, THERA 1 EACH TAB PO SCH (08:56)
[2021-04-18] MEDS: dexAMETHasone 2 MG TAB PO SCH (08:56)
[2021-04-18] MEDS: SERTRALINE 50 MG TAB PO SCH (08:56)
[2021-04-18] MEDS: GABAPENTIN 300 MG CAP PO SCH ×2 (08:56→21:44)
[2021-04-18] MEDS: ATORVASTATIN 20 MG TAB PO SCH (08:56)
[2021-04-18] MEDS: INSULIN ASPART (NovoLOG) 100 UNIT/ML VIAL SQ SCH ×4 (08:57→22:21)
[2021-04-18] MEDS ORDERED: PIPERACILLIN-TAZOBACTAM 3.375 GM in SODIUM CHLORIDE 0.9% 100 ML IVPB SCH (09:00)
[2021-04-18] MEDS ORDERED: predniSONE 5 MG TAB PO SCH (09:00)
[2021-04-18] MEDS ORDERED: TACROLIMUS 1 MG PO SCH (09:00)
--- NOTE | 2021-04-18 11:39 | P.NPCON ---
History of Present Illness - Reason for Consult Consult date: 04/18/21 - Chief Complaint Kidney transplant - History of Present Illness This is a 45-year-old female known to us with the donor kidney transplant, came in with symptoms of cold with 19 pneumonia had a mild cough. A chest x-ray shows small infiltrate right lower zone. 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 She was on dialysis for 2-1/2 years approximately and then had a transplant in October 2019 last year at [facility]. She is currently on Prograf CellCept and prednisone She has no oxygen requirement and is saturating well on room air. She is comfortable. No nausea vomiting diarrhea no abdominal pain no cough. 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 History of Any Multi-Drug Resistant Organisms: None Reported Past Surgical History: Section, Orthopedic Surgery, Tonsillectomy Additional Past Surgical History / Comment(s): Bilateral ureteral implantations done in [place], L knee arthroscopy, kidney transplant 2019 Past Anesthesia/Blood Transfusion Reactions: No Reported Reaction Additional Past Anesthesia/Blood Transfusion Reaction / Comment(s): Pt has never recieved blood. Past Psychological History: Anxiety Smoking Status: Never smoker Past Alcohol Use History: Occasional Past Drug Use History: None Reported - Past Family History Father Family Medical History: Diabetes Mellitus Additional Family Medical History / Comment(s): Father has a pacemaker and is hypoglycemic. Mother Family Medical History: Asthma Sister(s) Family Medical History: Unable to Obtain Daughter(s) Family Medical History: No Reported History Son(s) Family Medical History: Hypertension Medications and Allergies Home Medications Medication Instructions Recorded Confirmed Type Cetirizine HCl [Zyrtec] 10 mg PO DAILY 10/09/14 04/17/21 History Sertraline [Zoloft] 150 mg PO DAILY 10/09/14 04/17/21 History Multivitamins, Thera [Multivitamin 1 tab PO DAILY 09/14/16 04/17/21 History (formulary)] Acetaminophen Tab [Tylenol] 650 mg PO BID PRN 04/17/21 04/17/21 History Atorvastatin [Lipitor] 20 mg PO DAILY 04/17/21 04/17/21 History Azithromycin [Zithromax] 500 mg PO DAILY 04/17/21 04/17/21 History Biotin [Biotin Disolve] 10,000 mcg PO DAILY 04/17/21 04/17/21 History Dexamethasone 6 mg PO DAILY 04/17/21 04/17/21 History Fluconazole [Diflucan] 100 mg PO DAILY 04/17/21 04/17/21 History Gabapentin [Neurontin] 300 mg PO BID 04/17/21 04/17/21 History Insulin Aspart (For Pump) [NovoLOG 0.01 unit SQ-PUMP CONTINUOUS 04/17/21 04/17/21 History (For Pump)] Lisinopril [Prinivil] 10 mg PO DAILY 04/17/21 04/17/21 History Mycophenolate Mofetil [Cellcept] 1,000 mg PO DAILY 04/17/21 04/18/21 History Mycophenolate Mofetil [Cellcept] 500 mg PO DAILY 04/17/21 04/18/21 History NIFEdipine XL [Procardia XL] 60 mg PO DAILY 04/17/21 04/17/21 History Omeprazole 20 mg PO DAILY 04/17/21 04/17/21 History Tacrolimus [Envarsus Xr] 6 mg PO DAILY 04/17/21 04/18/21 History predniSONE 5 mg PO DAILY 04/17/21 04/18/21 History Allergies Allergy/AdvReac Type Severity Reaction Status Date / Time codeine Allergy HIVES Verified 04/17/21 22:53 Physical Exam Vitals: Vital Signs Temp Pulse Pulse Resp BP BP Pulse Ox 04/18/21 07:00 98.5 F 65 18 113/74 93 L 04/18/21 02:12 98.5 F 57 L 16 108/68 93 L 04/18/21 00:22 98.3 F 70 18 100/64 97 04/17/21 19:14 98.5 F 103 H 22 102/70 98 Intake and Output 04/17/21 04/18/21 04/18/21 22:59 06:59 14:59 Intake Total 200 Balance 200 Intake: Oral 200 Other: Weight 113.398 kg 113.398 kg On examination is awake alert oriented comfortable HEENT exam no JVP neck is supple no facial asymmetry Lungs clear to auscultation good air entry bilaterally Heart sounds unremarkable for any murmur rub gallop Abdomen soft nontender no organomegaly ascites no renal angle tenderness or no kidney transplant area tenderness Extremity exam reveals no edema Neurologically awake alert oriented Results - Lab Results Most recent lab results Calcium 8.0 mg/dL (8.4-10.2) L 04/18/21 06:06 Magnesium 2.2 mg/dL (1.6-2.3) 04/18/21 06:06 04/18/21 06:06 04/18/21 06:06 Assessment and Plan Assessment: Impression 1. donor kidney transplant October 2019 on immunosuppressive medication including Prograf CellCept and prednisone 2. Admitted with Covid-19 pneumonia with minimal symptoms. 3. Diabetes mellitus, blood sugars slightly out of control in the 300 range. Acetone negative anion gap is 9 4. Mild degree of hyponatremia secondary to high blood sugars. 5. Non-gap acidosis secondary to kidney transplant 6. Pancytopenia secondary to Covid Recommendation 1. Discontinue CellCept until recovered. 2. Increase prednisone from 5 mg to 10 mg 3. Suggest ID consult. 4. Check Prograf level, trough level target is about 5-7 5. Maintain IV fluids normal saline at 75 an hour with strict I's and O's Thank you for this consultation continue to follow closely
[2021-04-18 12:22] LABS: Glucose,Whole Blood 245 mg/dL (75-99)
[2021-04-18] MEDS: FLUCONAZOLE 100 MG TAB PO SCH (13:36)
[2021-04-18] MEDS: predniSONE 5 MG TAB PO SCH (13:37)
[2021-04-18] MEDS: TACROLIMUS 1 MG CAP PO SCH ×2 (13:37→21:45)
[2021-04-18] MEDS: predniSONE 10 MG TAB PO SCH (13:37)
--- NOTE | 2021-04-18 14:25 | P.PN ---
<Jamey Bello - Last Filed: 04/18/21 14:07> Subjective Progress Note Date: 04/18/21 Hospital course: The patient is a 45-year-old female with a past medical history of end-stage re nal disease status post kidney transplant in May 2019, type II DM on insulin pump, hypertension, and hyperlipidemia who presents to the emergency room on 04/17/21 with complaints of malaise, cough, fever, and anosmia. The patient reports that her symptoms started roughly a week ago when she felt more tired than usual and then progressed to intermittent fevers controlled with Tylenol. She then lost her sense of smell yesterday at which time she decided to go see her primary care physician started her on oral steroids and oral antibiotics and sent a rapid coronavirus test which had not resulted yet. The patient reports however that her blood sugars at home continued to run high due to which she decided to come to the emergency room. The patient is vaccinated for COVID-19 with Dailyevent dual dose and received a booster shot in January 2021. She reports that her cough is nonproductive. She also reported bilateral lower rib pains. She denied substernal chest discomfort or shortness of breath. Also reports a poor appetite with occasional watery stools and vomiting over the past 1 week. Denied headaches, weakness, numbness, tingling, visual disturbances. She underwent an extensive evaluation in the emergency room with a chest x-ray that revealed a mild infiltrate at the right lung base with laboratory evaluation remarkable for WBC count of 1.7, platelet count 81, sodium 132, CO2 17, BUN 27, creatinine 1.42, glucose 424, and coronavirus PCR positive with magnesium 1.5 and lactic acid 1.3. Physical examination: Patient seen and fully evaluated at bedside this morning. Patient appeared to be resting comfortably and easily awoke and via verbal stimuli. Patient reports nonproductive cough, body aches, mild shortness of breath, fatigue, loss of appetite, loss of taste, and loss of smell. She denies having any headache, lig htheadedness, dizziness, chest pain, palpitations, nausea, vomiting, abdominal pain, changes in her difficulties with her urinary function, or experiencing any numbness/tingling/weakness in her extremities. Patient was seen and fully evaluated by nephrology, recommending patient to discontinue CellCept until fully recovered from Covid 19 virus infection and prednisone was increased from 5 mg to 10 mg daily. Patient continues with hyperglycemia with morning glucose of 374. Patient being given 14 units of NovoLog along with 1 L bolus 0.9% normal saline at this time. Hemoglobin A1c was 9.3%. General: non toxic, no distress, appears at stated age, obese Derm: no unusual rashes/lesions no unusual ecchymoses, warm, dry Head: atraumatic, normocephalic, symmetric Eyes: EOMI, no lid lag, anicteric sclera, pupils equal round reactive to light ENT: Nose and ears atraumatic, no thrush, no pharyngeal erythema Neck: No thyromegaly, no cervical lymphadenopathy, trachea midline, supple Mouth: no lip lesion, mucus membranes moist Cardiovascular: S1S2 reg, no murmur, positive posterior tibial pulse bilateral, no edema, capillary refill less than 2 seconds Lungs: CTA bilateral, no rhonchi, no rales , no accessory muscle use Abdominal: soft, nontender to palpation, no guarding, no appreciable organomegaly, normal bowel sounds Ext: no gross muscle atrophy, muscle strength 5 out of 5 in all 4 extremities grossly, no contractures, Neuro: CN II-XI grossly intact, light touch intact all 4 extremities, finger to nose within normal limits, Psych: Alert, oriented, appropriate affect Assessment and plan of care: COVID-19 pneumonia in vaccinated patient -Bamlanivimab was given -Oxygenation to be administered as needed and titrated as needed to maintain SPO2 equal to or greater than 90%, patient currently on room air -Telemetry monitoring. -Continue trending inflammatory markers -Encourage Incentive Spirometry 10-15x hourly while awake -Steroids: Patient currently on prednisone 10 mg daily -Continue vitamin C, Vitamin D, and Zinc. -Strict Droplet plus Contact precautions Acute kidney injury in setting of renal transplant, improved Status post donor kidney transplant in October 2019 -Continue immunosuppressive medication Prograf and prednisone. Nephrology increase prednisone to 10 mg daily. -Nephrology recommending discontinuation of CellCept until patient is fully recovered from Covid 19 virus. -Nephrology following, appreciate further recommendations. -Infectious disease consulted. -Prograf level to be obtained. -Continue with IV fluids -Nephrology consulted -Hold Lisinopril at this time Type II DM with hyperglycemia on insulin pump -The patient does not have her pump supplies -Discontinue the pump at this time -Basal rate 0.5 units per hour as per patient -Increase Levemir to 15 units daily at bedtime -Continue glycemic protocol with NovoLog sliding scale for steroids -Hemoglobin A1c 9.3%. Hypomagnesemia, resolved -We will continue to monitor with repeat a.m. labs Bicytopenia -Suspected secondary to ongoing infection -Monitor for now Hypertension Monitor vital signs. Hold lisinopril secondary to acute kidney injury in setting of renal transplant recipient. Continue daily medication regimen with Procardia. Hyperlipidemia Continue daily medication regimen with atorvastatin 20 mg nightly. CODE STATUS: Full Code DVT prophylaxis: SCDs Discussed with: Patient and RN Anticipated discharge date: Likely tomorrow morning Anticipated discharge place: Home. A total of [] minutes was spent on the care of this complex patient more than 50% of the time was spent in counseling and care coordination. Objective - Vital Signs Vital signs: Vital Signs Temp 98.5 F 04/18/21 02:12 Pulse 57 L 04/18/21 02:12 Resp 16 04/18/21 02:12 BP 108/68 04/18/21 02:12 Pulse Ox 93 L 04/18/21 02:12 Intake & Output 04/17/21 04/18/21 04/18/21 18:59 06:59 18:59 Weight 113.398 kg - Labs CBC & Chem 7: 04/18/21 06:06 04/18/21 06:06 Labs: Abnormal Lab Results - Last 24 Hours (Table) 04/17/21 04/17/21 04/17/21 Range/Units 21:34 21:34 21:34 WBC 1.7 L (3.8-10.6) k/uL Plt Count 81 L (150-450) k/uL Lymphocytes # 0.3 L (1.0-4.8) k/uL APTT 20.3 L (22.0-30.0) sec Sodium 132 L (137-145) mmol/L Chloride (98-107) mmol/L Carbon Dioxide 17 L (22-30) mmol/L BUN 27 H (7-17) mg/dL Creatinine 1.42 H (0.52-1.04) mg/dL Glucose 424 H (74-99) mg/dL POC Glucose (mg/dL) (75-99) mg/dL Calcium (8.4-10.2) mg/dL Magnesium 1.5 L (1.6-2.3) mg/dL C-Reactive Protein 2.3 H (<1.0) mg/dL Total Protein (6.3-8.2) g/dL Albumin (3.5-5.0) g/dL Coronavirus (PCR) (Not Detectd) 04/17/21 04/18/21 04/18/21 Range/Units 21:34 00:20 02:43 WBC (3.8-10.6) k/uL Plt Count (150-450) k/uL Lymphocytes # (1.0-4.8) k/uL APTT (22.0-30.0) sec Sodium (137-145) mmol/L Chloride (98-107) mmol/L Carbon Dioxide (22-30) mmol/L BUN (7-17) mg/dL Creatinine (0.52-1.04) mg/dL Glucose (74-99) mg/dL POC Glucose (mg/dL) 354 H 342 H (75-99) mg/dL Calcium (8.4-10.2) mg/dL Magnesium (1.6-2.3) mg/dL C-Reactive Protein (<1.0) mg/dL Total Protein (6.3-8.2) g/dL Albumin (3.5-5.0) g/dL Coronavirus (PCR) Detected A (Not Detectd) 04/18/21 04/18/21 04/18/21 Range/Units 06:06 06:06 07:04 WBC 1.7 L (3.8-10.6) k/uL Plt Count 69 L (150-450) k/uL Lymphocytes # 0.3 L (1.0-4.8) k/uL APTT (22.0-30.0) sec Sodium 135 L (137-145) mmol/L Chloride 109 H (98-107) mmol/L Carbon Dioxide 18 L (22-30) mmol/L BUN 24 H (7-17) mg/dL Creatinine 1.31 H (0.52-1.04) mg/dL Glucose 348 H (74-99) mg/dL POC Glucose (mg/dL) 374 H (75-99) mg/dL Calcium 8.0 L (8.4-10.2) mg/dL Magnesium (1.6-2.3) mg/dL C-Reactive Protein (<1.0) mg/dL Total Protein 6.1 L (6.3-8.2) g/dL Albumin 3.3 L (3.5-5.0) g/dL Coronavirus (PCR) (Not Detectd) <Ene Sprague - Last Filed: 04/18/21 17:54> Subjective I reviewed the documentation as provided by the HARSHAD above, who is the original author of this note. I agree with the documented assessment and plan, with the following changes: Prograf to be held until ID consult completed Objective - Vital Signs Vital signs: Vital Signs Temp 98.8 F 04/18/21 14:35 Pulse 61 04/18/21 14:35 Resp 18 04/18/21 14:35 BP 114/74 04/18/21 14:35 Pulse Ox 91 L 04/18/21 14:35 Intake & Output 04/17/21 04/18/21 04/18/21 18:59 06:59 18:59 Intake Total 800 Balance 800 Weight 113.398 kg Intake: Intake, IV Titration 100 Amount cefTRIAXone 1 gm In 100 Sodium Chloride 0.9% 50 ml @ 100 mls/hr IVPB Q24HR [facility] Rx#:[id number] Oral 700 - Labs CBC & Chem 7: 04/18/21 06:06 04/18/21 06:06 Labs: Abnormal Lab Results - Last 24 Hours (Table) 04/17/21 04/17/21 04/17/21 Range/Units 21:34 21:34 21:34 WBC 1.7 L (3.8-10.6) k/uL Plt Count 81 L (150-450) k/uL Lymphocytes # 0.3 L (1.0-4.8) k/uL APTT 20.3 L (22.0-30.0) sec Sodium 132 L (137-145) mmol/L Chloride (98-107) mmol/L Carbon Dioxide 17 L (22-30) mmol/L BUN 27 H (7-17) mg/dL Creatinine 1.42 H (0.52-1.04) mg/dL Glucose 424 H (74-99) mg/dL POC Glucose (mg/dL) (75-99) mg/dL Hemoglobin A1c (4.0-6.0) % Calcium (8.4-10.2) mg/dL Magnesium 1.5 L (1.6-2.3) mg/dL Ferritin 2821.0 H (10.0-291.0) ng/mL C-Reactive Protein 2.3 H (<1.0) mg/dL Total Protein (6.3-8.2) g/dL Albumin (3.5-5.0) g/dL Coronavirus (PCR) (Not Detectd) 04/17/21 04/18/21 04/18/21 Range/Units 21:34 00:20 02:43 WBC (3.8-10.6) k/uL Plt Count (150-450) k/uL Lymphocytes # (1.0-4.8) k/uL APTT (22.0-30.0) sec Sodium (137-145) mmol/L Chloride (98-107) mmol/L Carbon Dioxide (22-30) mmol/L BUN (7-17) mg/dL Creatinine (0.52-1.04) mg/dL Glucose (74-99) mg/dL POC Glucose (mg/dL) 354 H 342 H (75-99) mg/dL Hemoglobin A1c (4.0-6.0) % Calcium (8.4-10.2) mg/dL Magnesium (1.6-2.3) mg/dL Ferritin (10.0-291.0) ng/mL C-Reactive Protein (<1.0) mg/dL Total Protein (6.3-8.2) g/dL Albumin (3.5-5.0) g/dL Coronavirus (PCR) Detected A (Not Detectd) 04/18/21 04/18/21 04/18/21 Range/Units 06:06 06:06 06:06 WBC 1.7 L (3.8-10.6) k/uL Plt Count 69 L (150-450) k/uL Lymphocytes # 0.3 L (1.0-4.8) k/uL APTT (22.0-30.0) sec Sodium 135 L (137-145) mmol/L Chloride 109 H (98-107) mmol/L Carbon Dioxide 18 L (22-30) mmol/L BUN 24 H (7-17) mg/dL Creatinine 1.31 H (0.52-1.04) mg/dL Glucose 348 H (74-99) mg/dL POC Glucose (mg/dL) (75-99) mg/dL Hemoglobin A1c 9.3 H (4.0-6.0) % Calcium 8.0 L (8.4-10.2) mg/dL Magnesium (1.6-2.3) mg/dL Ferritin (10.0-291.0) ng/mL C-Reactive Protein (<1.0) mg/dL Total Protein 6.1 L (6.3-8.2) g/dL Albumin 3.3 L (3.5-5.0) g/dL Coronavirus (PCR) (Not Detectd) 04/18/21 04/18/21 04/18/21 Range/Units 07:04 12:19 17:14 WBC (3.8-10.6) k/uL Plt Count (150-450) k/uL Lymphocytes # (1.0-4.8) k/uL APTT (22.0-30.0) sec Sodium (137-145) mmol/L Chloride (98-107) mmol/L Carbon Dioxide (22-30) mmol/L BUN (7-17) mg/dL Creatinine (0.52-1.04) mg/dL Glucose (74-99) mg/dL POC Glucose (mg/dL) 374 H 245 H 361 H (75-99) mg/dL Hemoglobin A1c (4.0-6.0) % Calcium (8.4-10.2) mg/dL Magnesium (1.6-2.3) mg/dL Ferritin (10.0-291.0) ng/mL C-Reactive Protein (<1.0) mg/dL Total Protein (6.3-8.2) g/dL Albumin (3.5-5.0) g/dL Coronavirus (PCR) (Not Detectd)
[2021-04-18 17:15] LABS: Glucose,Whole Blood 361 mg/dL (75-99)
[2021-04-18 21:29] LABS: Glucose,Whole Blood 401 mg/dL (75-99)
[2021-04-19] MEDS ORDERED: AZITHROMYCIN 500 MG in SODIUM CHLORIDE 0.9% 250 ML IVPB SCH (03:00)
[2021-04-19 03:37] LABS: Glucose,Whole Blood 248 mg/dL (75-99)
[2021-04-19 07:34] LABS: Glucose,Whole Blood 234 mg/dL (75-99)
[2021-04-19 07:58] VITALS: BP 105/71; PULSE 76; RESP 16; TEMP 98.3
--- NOTE | 2021-04-19 08:04 | P.CONS ---
History of Present Illness - Reason for Consult Consult date: 04/18/21 covid 19 Requesting physician: Ene Sprague - Chief Complaint shortness of breath x few days - History of Present Illness History of present illness : Patient is 45-year-old female with a past medical history significant for end-stage renal disease status post kidney transplant in May 2019 diabetes mellitus on insulin pump hypertension presented to the ER with complaints of malaise cough fever and elevated blood sugar patient symptom has been going on for the last week and patient been mostly tired than usual with intermittent fever for the patient been taking Tylenol patient apparently has been evaluated in the outPatient setting tested for the Covid and was started on steroids and antibiotics however the patient noticed the blood sugar to be running really high patient complaining of shortness of breath she also have a cough which is mild to moderate intensity and mostly dry in nature patient did have some nausea no vomiting and no diarrh ea with the symptom the patient has been evaluated by ER physician on arrival to the ER the patient was afebrile patient initially was not hypoxic subsequently has been mildly hypoxic however he missed 2 on room air patient did have a leukopenia as well as lymphopenia D-dimer was normal creatinine was mildly elevated liver enzymes are normal blood cultures normal did have positive Covid test chest x-ray with right lower lobe infiltrate patient is received monoclonal antibodies in the hospital ER patient subsequently has been admitted to hospital for further management infectious disease was consulted Review of system: CONSTITUTIONAL: Positive for weakness along with the fever. EYES: No complaint. ENT: No complaint. RESPIRATORY: As per history of present illness. CARDIOVASCULAR: No complaint. GENITOURINARY: No complaint. GASTROINTESTINAL: As per history of present illness. MUSCULOSKELETAL: No complaint. INTEGUMENTARY: No complaint. PSYCHOLOGIC: No complaint. ENDOCRINE: No complaint. NEUROLOGIC: No complaint. Past medical history : Reviewed, documented below Past surgical history : Reviewed, documented below Social history: Reviewed, documented below Medications: Reviewed, as documented below EXAMINATION: Vital sigans= Reviewed and documented below GENERAL DESCRIPTION: Middle-aged female lying in bed, no distress. No tachypnea or accessory muscle of respiration use. HEENT: Shows Pallor , no scleral icterus. Oral mucous membrane is dry. NECK: Trachea central, no thyromegaly. LUNGS: Unlabored breathing. Decrease intensity of breath sounds. No wheeze or crackle. HEART: S1, S2, regular rate and rhythm. ABDOMEN: Soft, no tenderness , guarding or rigidity EXTREMITIES: No edema of feet. SKIN: No rash, no masses palpable. NEUROLOGICAL: The patient is awake, alert, oriented x3, mood and affect normal. LABS AND RADIOLOGY: Reviewed results see below Assessment : Patient presented to hospital with weakness shortness of breath and cough along with elevated blood sugar in this patient who do have a history of renal transplant on immunosuppressive medication patient is fully vaccinated for Covid no still testing positive for Covid but more likely mild illness and has received monoclonal antibodies clinical suspicion low for secondary bacterial pneumonia with a normal procalcitonin Plan: 1-patient will be started on vitamin C zinc and ascorbic acid 2-we will need to watch her O2 sats closely if any hypoxemia may qualify for remdesivir 3-droplet isolation and respiratory support We will follow on clinical condition and cultures to further adjust medication if needed Thank you for this consultation we will follow the patient along with you Past Medical History Past Medical History: Diabetes Mellitus, Hyperlipidemia, Hypertension, Renal Disease Additional Past Medical History / Comment(s): Other HX: 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 History of Any Multi-Drug Resistant Organisms: None Reported Past Surgical History: Section, Orthopedic Surgery, Tonsillectomy Additional Past Surgical History / Comment(s): Bilateral ureteral implantations done in [place], L knee arthroscopy, kidney transplant 2019 Past Anesthesia/Blood Transfusion Reactions: No Reported Reaction Additional Past Anesthesia/Blood Transfusion Reaction / Comm: Pt has never recieved blood. Past Psychological History: Anxiety Smoking Status: Never smoker Past Alcohol Use History: Occasional Past Drug Use History: None Reported - Past Family History Father Family Medical History: Diabetes Mellitus Additional Family Medical History / Comment(s): Father has a pacemaker and is hypoglycemic. Mother Family Medical History: Asthma Sister(s) Family Medical History: Unable to Obtain Daughter(s) Family Medical History: No Reported History Son(s) Family Medical History: Hypertension Medications and Allergies Home Medications Medication Instructions Recorded Confirmed Type Cetirizine HCl [Zyrtec] 10 mg PO DAILY 10/09/14 04/17/21 History Sertraline [Zoloft] 150 mg PO DAILY 10/09/14 04/17/21 History Multivitamins, Thera [Multivitamin 1 tab PO DAILY 09/14/16 04/17/21 History (formulary)] Acetaminophen Tab [Tylenol] 650 mg PO BID PRN 04/17/21 04/17/21 History Atorvastatin [Lipitor] 20 mg PO DAILY 04/17/21 04/17/21 History Azithromycin [Zithromax] 500 mg PO DAILY 04/17/21 04/17/21 History Biotin [Biotin Disolve] 10,000 mcg PO DAILY 04/17/21 04/17/21 History Dexamethasone 6 mg PO DAILY 04/17/21 04/17/21 History Fluconazole [Diflucan] 100 mg PO DAILY 04/17/21 04/17/21 History Gabapentin [Neurontin] 300 mg PO BID 04/17/21 04/17/21 History Insulin Aspart (For Pump) [NovoLOG 0.01 unit SQ-PUMP CONTINUOUS 04/17/21 04/17/21 History (For Pump)] Lisinopril [Prinivil] 10 mg PO DAILY 04/17/21 04/17/21 History Mycophenolate Mofetil [Cellcept] 1,000 mg PO DAILY 04/17/21 04/18/21 History Mycophenolate Mofetil [Cellcept] 500 mg PO DAILY 04/17/21 04/18/21 History NIFEdipine XL [Procardia XL] 60 mg PO DAILY 04/17/21 04/17/21 History Omeprazole 20 mg PO DAILY 04/17/21 04/17/21 History Tacrolimus [Envarsus Xr] 6 mg PO DAILY 04/17/21 04/18/21 History predniSONE 5 mg PO DAILY 04/17/21 04/18/21 History Allergies Allergy/AdvReac Type Severity Reaction Status Date / Time codeine Allergy HIVES Verified 04/17/21 22:53 Physical Exam Vitals: Vital Signs Temp Pulse Pulse Resp BP BP Pulse Ox 04/18/21 07:00 98.5 F 65 18 113/74 93 L 04/18/21 02:12 98.5 F 57 L 16 108/68 93 L 04/18/21 00:22 98.3 F 70 18 100/64 97 04/17/21 19:14 98.5 F 103 H 22 102/70 98 Intake and Output 04/17/21 04/18/21 04/18/21 22:59 06:59 14:59 Intake Total 200 Balance 200 Intake: Oral 200 Other: Weight 113.398 kg 113.398 kg Results CBC & Chem 7: 04/18/21 06:06 04/18/21 06:06 Labs: Abnormal Lab Results - Last 24 Hours (Table) 04/17/21 04/17/21 04/17/21 Range/Units 21:34 21:34 21:34 WBC 1.7 L (3.8-10.6) k/uL Plt Count 81 L (150-450) k/uL Lymphocytes # 0.3 L (1.0-4.8) k/uL APTT 20.3 L (22.0-30.0) sec Sodium 132 L (137-145) mmol/L Chloride (98-107) mmol/L Carbon Dioxide 17 L (22-30) mmol/L BUN 27 H (7-17) mg/dL Creatinine 1.42 H (0.52-1.04) mg/dL Glucose 424 H (74-99) mg/dL POC Glucose (mg/dL) (75-99) mg/dL Calcium (8.4-10.2) mg/dL Magnesium 1.5 L (1.6-2.3) mg/dL Ferritin 2821.0 H (10.0-291.0) ng/mL C-Reactive Protein 2.3 H (<1.0) mg/dL Total Protein (6.3-8.2) g/dL Albumin (3.5-5.0) g/dL Coronavirus (PCR) (Not Detectd) 04/17/21 04/18/21 04/18/21 Range/Units 21:34 00:20 02:43 WBC (3.8-10.6) k/uL Plt Count (150-450) k/uL Lymphocytes # (1.0-4.8) k/uL APTT (22.0-30.0) sec Sodium (137-145) mmol/L Chloride (98-107) mmol/L Carbon Dioxide (22-30) mmol/L BUN (7-17) mg/dL Creatinine (0.52-1.04) mg/dL Glucose (74-99) mg/dL POC Glucose (mg/dL) 354 H 342 H (75-99) mg/dL Calcium (8.4-10.2) mg/dL Magnesium (1.6-2.3) mg/dL Ferritin (10.0-291.0) ng/mL C-Reactive Protein (<1.0) mg/dL Total Protein (6.3-8.2) g/dL Albumin (3.5-5.0) g/dL Coronavirus (PCR) Detected A (Not Detectd) 04/18/21 04/18/21 04/18/21 Range/Units 06:06 06:06 07:04 WBC 1.7 L (3.8-10.6) k/uL Plt Count 69 L (150-450) k/uL Lymphocytes # 0.3 L (1.0-4.8) k/uL APTT (22.0-30.0) sec Sodium 135 L (137-145) mmol/L Chloride 109 H (98-107) mmol/L Carbon Dioxide 18 L (22-30) mmol/L BUN 24 H (7-17) mg/dL Creatinine 1.31 H (0.52-1.04) mg/dL Glucose 348 H (74-99) mg/dL POC Glucose (mg/dL) 374 H (75-99) mg/dL Calcium 8.0 L (8.4-10.2) mg/dL Magnesium (1.6-2.3) mg/dL Ferritin (10.0-291.0) ng/mL C-Reactive Protein (<1.0) mg/dL Total Protein 6.1 L (6.3-8.2) g/dL Albumin 3.3 L (3.5-5.0) g/dL Coronavirus (PCR) (Not Detectd) 04/18/21 Range/Units 12:19 WBC (3.8-10.6) k/uL Plt Count (150-450) k/uL Lymphocytes # (1.0-4.8) k/uL APTT (22.0-30.0) sec Sodium (137-145) mmol/L Chloride (98-107) mmol/L Carbon Dioxide (22-30) mmol/L BUN (7-17) mg/dL Creatinine (0.52-1.04) mg/dL Glucose (74-99) mg/dL POC Glucose (mg/dL) 245 H (75-99) mg/dL Calcium (8.4-10.2) mg/dL Magnesium (1.6-2.3) mg/dL Ferritin (10.0-291.0) ng/mL C-Reactive Protein (<1.0) mg/dL Total Protein (6.3-8.2) g/dL Albumin (3.5-5.0) g/dL Coronavirus (PCR) (Not Detectd)
[2021-04-19] MEDS: GABAPENTIN 300 MG CAP PO SCH (08:53)
[2021-04-19] MEDS: MULTIVITAMINS, THERA 1 EACH TAB PO SCH (08:53)
[2021-04-19] MEDS: INSULIN ASPART (NovoLOG) 100 UNIT/ML VIAL SQ SCH ×2 (08:53→12:38)
[2021-04-19] MEDS: TACROLIMUS 1 MG CAP PO SCH (08:53)
[2021-04-19] MEDS: ATORVASTATIN 20 MG TAB PO SCH (08:54)
[2021-04-19] MEDS: predniSONE 10 MG TAB PO SCH (08:54)
[2021-04-19] MEDS: FLUCONAZOLE 100 MG TAB PO SCH (08:54)
[2021-04-19] MEDS: SERTRALINE 50 MG TAB PO SCH (08:54)
[2021-04-19] MEDS: predniSONE 5 MG TAB PO SCH (08:54)
[2021-04-19] MEDS: dexAMETHasone 2 MG TAB PO SCH (08:54)
[2021-04-19] MEDS ORDERED: ZINC SULFATE 220 MG CAP PO SCH (09:00)
[2021-04-19] MEDS ORDERED: ASCORBIC ACID 500 MG TAB PO SCH (09:00)
[2021-04-19] MEDS ORDERED: ENOXAPARIN 40 MG/0.4 ML SYRINGE SQ SCH (09:00)
--- NOTE | 2021-04-19 10:43 | P.PN ---
Subjective Patient is seen in follow-up for kidney transplant management. Creatinine 1.31 as of yesterday. Currently on room air. Denies chest pain or shortness of breath. Oral intake is good. No vomiting or diarrhea. Vital signs are stable. General: The patient appeared well nourished and normally developed. HEENT: Head exam is unremarkable. LUNGS: Breath sounds decreased. HEART: Rate and Rhythm are regular. ABDOMEN: Soft, no distention. EXTREMITITES: No edema. Objective - Vital Signs Vital signs: Vital Signs Temp 98.3 F 04/19/21 07:00 Pulse 76 04/19/21 07:00 Resp 16 04/19/21 07:00 BP 105/71 04/19/21 07:00 Pulse Ox 94 L 04/19/21 07:00 Intake & Output 04/18/21 04/19/21 04/19/21 18:59 06:59 18:59 Intake Total 1300 Balance 1300 Intake: Intake, IV Titration 100 Amount cefTRIAXone 1 gm In 100 Sodium Chloride 0.9% 50 ml @ 100 mls/hr IVPB Q24HR [facility] Rx#:[id number] Oral 1200 Other: Voiding Method Toilet # Voids 1 - Labs CBC & Chem 7: 04/18/21 06:06 04/18/21 06:06 Labs: Abnormal Lab Results - Last 24 Hours (Table) 04/18/21 04/18/21 04/18/21 Range/Units 06:06 12:19 17:14 POC Glucose (mg/dL) 245 H 361 H (75-99) mg/dL Hemoglobin A1c 9.3 H (4.0-6.0) % 04/18/21 04/19/21 04/19/21 Range/Units 21:28 03:36 07:32 POC Glucose (mg/dL) 401 H 248 H 234 H (75-99) mg/dL Hemoglobin A1c (4.0-6.0) % Microbiology - Last 24 Hours (Table) 04/18/21 00:12 Blood Culture - Preliminary Blood No Growth after 24 hours 04/18/21 00:12 Blood Culture - Preliminary Blood No Growth after 24 hours Assessment and Plan Plan: Assessment: 1. Status post donor renal transplant. 2. Acute allograft dysfunction mostly prerenal secondary to infection. Creatinine 1.31 yesterday. 3. COVID-19 pneumonia. 4. Diabetes mellitus. 5. Hypertonic hyponatremia secondary to hyperglycemia. Improved. 6. Metabolic acidosis secondary to acute kidney injury. Plan: Off IVFs. Encouraged oral intake. Continue to hold CellCept until infection resolved. Maintain prednisone and Prograf. Follow-up Prograf level. Continue to monitor renal function and urine output. Follow up outpatient 1 week post discharge.
[2021-04-19 11:11] LABS: African American GFR (CKD) 64.3 (60.0-200.0); BUN/Creat Ratio 15.88 Ratio (12.00-20.00); Blood Urea Nitrogen 18.9 mg/dL (9.0-27.0); C Reactive Protein 1.6 mg/dL (0.00-0.80); Calcium 8.6 mg/dL (8.7-10.3); Carbon Dioxide 18.7 mmol/L (21.6-31.8); Magnesium 1.9 mg/dL (1.5-2.4); Non-African American GFR(CKD) 55.5 (60.0-200.0); Potassium 4.5 mmol/L (3.5-5.5)
--- NOTE | 2021-04-19 11:25 | P.DS ---
<Jamey Bello - Last Filed: 04/19/21 11:25> Providers Expected date of discharge: 04/19/21 Hospital Course: Discharge Diagnosis: COVID-19 pneumonia in vaccinated patient Acute kidney injury in setting of renal transplant, improved Status post donor kidney transplant in October 2019 Type II DM with hyperglycemia on insulin pump Hypomagnesemia, resolved Bicytopenia Hypertension Hyperlipidemia Hospital Course: The patient is a 45-year-old female with a past medical history of end-stage renal disease status post kidney transplant in May 2019, type II DM on insulin pump, hypertension, and hyperlipidemia who presents to the emergency room on 04/17/21 with complaints of malaise, cough, fever, and anosmia. The patient reports that her symptoms started roughly a week ago when she felt more tired than usual and then progressed to intermittent fevers controlled with Tylenol. She then lost her sense of smell and decided to go see her primary care physician whom started her on oral steroids and oral antibiotics and sent a rapid coronavirus test which had not yet resulted The patient reports however that her blood sugars at home continued to run high and she decided to come to the emergency room. The patient is vaccinated for COVID-19 with Starfish 360 dual dose and received a booster shot in January 2021. She underwent an extensive evaluation in the emergency room with a chest x-ray that revealed a mild infiltrate at the right lung base with laboratory evaluation remarkable for WBC count of 1.7, platelet count 81, sodium 132, CO2 17, BUN 27, creatinine 1.42, glucose 424, and coronavirus PCR POSITIVE with magnesium 1.5 and lactic acid 1.3. Pt was admitted under our services and nephrology and infectious disease consulted. Pt monitored and received gentle hydration. Blood glucose levels were stabilized in the 200s. Patient is medically stable for discharge home. Nephrology instructed patient that she will need to hold CellCept for 10 days to allow body to recover from current infectious process with Covid. Patient to continue Prograf and prednisone 5 mg daily in addition to being placed on additional steroid Decadron 6 mg daily for the next 8 days along with vitamin C, vitamin D, and zinc. Pro-calcitonin negative and therefore no need for antibiotic therapy. Discussed with patient importance of monitoring pulse oximetry at home and returning to the hospital immediately if oxygen sats drop below 90% and do not quickly recover. Patient verbalized understanding of discharge instructions and all questions answered at this time. Patient medically stable for discharge and to follow up with nephrology in 2 weeks and PCP in 1-2 days. Pt to remain in isolation as discussed for 10 days from positive test in addition to being symptom free for 2 days, earliest day out of isolation is 04/27/21. Physical examination: Patient seen and fully evaluated at bedside this morning. Patient sitting up in chair at bedside and reports that "I am ready to go home." Patient's oxygen saturations have remained at 90% or above throughout her entire hospitalization. She continues to have body aches, nonproductive cough, and loss of taste and smell but does report appetite has improved and currently denies experiencing any shortness of breath at rest. Patient denies any other complaints or concerns at this time including headache, lightheadedness, dizziness, chest pain, palpitations, abdominal pain, nausea, vomiting, diarrhea, or experiencing any numbness/tingling/weakness in her extremities. Patient reports she is urinating as normal and denies any CVA tenderness. Renal function back to baseline with BUN of 24, creatinine 1.31, and GFR of 50. General: non toxic, no distress, appears at stated age Derm: warm, dry Head: atraumatic, normocephalic, symmetric Eyes: EOMI, no lid lag, anicteric sclera Mouth: no lip lesion, mucus membranes moist Cardiovascular: S1S2 reg, no murmur, positive posterior tibial pulse bilateral, Lungs: CTA bilateral, no rhonchi, no rales , no accessory muscle use Abdominal: soft, nontender to palpation, no guarding, no appreciable organomegaly Ext: no gross muscle atrophy, no edema, no contractures Neuro: CN II-XI grossly intact, no focal neuro deficits Psych: Alert, oriented, appropriate affect A total of 45 minutes of time were spent preparing this complex discharge chaim taylor. Assessment: I reviewed the documentation as provided by the HARSHAD above, who is the original author of this note. I agree with the documented assessment and plan, with the following changes: None Patient Condition at Discharge: Stable Plan - Discharge Summary Discharge Rx Participant: No New Discharge Prescriptions: New Zinc Sulfate [Orazinc] 220 mg PO DAILY 30 Days #30 cap Ascorbic Acid [Vitamin C] 1,000 mg PO DAILY 30 Days #60 tab Continue Sertraline [Zoloft] 150 mg PO DAILY Cetirizine HCl [Zyrtec] 10 mg PO DAILY Multivitamins, Thera [Multivitamin (formulary)] 1 tab PO DAILY Tacrolimus [Envarsus Xr] 6 mg PO DAILY Mycophenolate Mofetil [Cellcept] 500 mg PO HS predniSONE 5 mg PO DAILY Gabapentin [Neurontin] 300 mg PO BID Biotin [Biotin Disolve] 10,000 mcg PO DAILY Insulin Aspart (For Pump) [NovoLOG (For Pump)] 0.01 unit SQ-PUMP CONTINUOUS Acetaminophen Tab [Tylenol] 650 mg PO BID PRN PRN Reason: Pain Lisinopril [Prinivil] 10 mg PO DAILY Atorvastatin [Lipitor] 20 mg PO DAILY Dexamethasone 6 mg PO DAILY 8 Days #8 tab Mycophenolate Mofetil [Cellcept] 1,000 mg PO DAILY Omeprazole 20 mg PO DAILY NIFEdipine XL [Procardia XL] 60 mg PO DAILY Fluconazole [Diflucan] 100 mg PO DAILY Discontinued Azithromycin [Zithromax] 500 mg PO DAILY Discharge Medication List Cetirizine HCl [Zyrtec] 10 mg PO DAILY 10/09/14 [History] Sertraline [Zoloft] 150 mg PO DAILY 10/09/14 [History] Multivitamins, Thera [Multivitamin (formulary)] 1 tab PO DAILY 09/14/16 [History] Acetaminophen Tab [Tylenol] 650 mg PO BID PRN 04/17/21 [History] Atorvastatin [Lipitor] 20 mg PO DAILY 04/17/21 [History] Biotin [Biotin Disolve] 10,000 mcg PO DAILY 04/17/21 [History] Fluconazole [Diflucan] 100 mg PO DAILY 04/17/21 [History] Gabapentin [Neurontin] 300 mg PO BID 04/17/21 [History] Insulin Aspart (For Pump) [NovoLOG (For Pump)] 0.01 unit SQ-PUMP CONTINUOUS 04/17/21 [History] Lisinopril [Prinivil] 10 mg PO DAILY 04/17/21 [History] Mycophenolate Mofetil [Cellcept] 1,000 mg PO DAILY 04/17/21 [History] Mycophenolate Mofetil [Cellcept] 500 mg PO HS 04/17/21 [History] NIFEdipine XL [Procardia XL] 60 mg PO DAILY 04/17/21 [History] Omeprazole 20 mg PO DAILY 04/17/21 [History] Tacrolimus [Envarsus Xr] 6 mg PO DAILY 04/17/21 [History] predniSONE 5 mg PO DAILY 04/17/21 [History] Ascorbic Acid [Vitamin C] 1,000 mg PO DAILY 30 Days #60 tab 04/19/21 [Rx] Dexamethasone 6 mg PO DAILY 8 Days #8 tab 04/19/21 [Rx] Zinc Sulfate [Orazinc] 220 mg PO DAILY 30 Days #30 cap 04/19/21 [Rx] Follow up Appointment(s)/Referral(s): José Antonio Vail MD [Primary Care Provider] - 1-2 days Lázaro Yun DO [STAFF PHYSICIAN] - 04/20/21 1:00 pm Ambulatory/Diagnostic Orders: Basic Metabolic Panel [LAB.AMB] Time Frame: 5 Days, Location: None Selected Patient Instructions/Handouts: Coronavirus Disease 2019 (COVID-19), Chronic Kidney Disease (DC) Activity/Diet/Wound Care/Special Instructions: Activity: As tolerated. Take breaks as needed. Diet: Heart healthy and carb consistent diet. Avoid salts, or foods with hidden salts such as canned or boxed foods and frozen dinners. Extra salt makes your heart work harder and traps the fluid in your body for longer. Special Instructions: Take all of your medications as directed and remember to keep all of your doctor's appointments and follow-up as needed. It is important as we discussed and advised by your admin dir to hold your CellCept for 10 days to allow your body to recover from this current infectious process. It is important to continue taking your Prograf and prednisone as prescribed. You will also be sent home on additional steroids Decadron 6 mg daily for treatment of your Covid infection along with vitamin C, vitamin D, and zinc. You can purchase a pulse ox from [employer] for monitoring of your oxygen levels throughout your time at home. As we discussed, if you're levels fall and do not quickly recover you will need to return to the hospital for oxygen supplementation and further treatment. It is important to remain on social isolation as discussed for 10 days from positive test in addition to being symptom free for 2 days, earliest day out of isolation is 04/27/21. Thank you for allowing us to participate in your care, it was truly a pleasure having you for our patient!!! Discharge Disposition: HOME SELF-CARE <Ene Sprague - Last Filed: 04/19/21 13:57> Providers Date of admission: 04/18/21 00:00 Attending physician: Sheryl Whitney MD Consults: 04/17/21 23:37 Consult Physician Urgent Consulting Provider: Leonila Cowan Consult Reason/Comments: Transplant patient Do you want consulting provider notified?: Already Contacted 04/18/21 11:44 Consult Physician Routine Consulting Provider: Francoise You Consult Reason/Comments: Kidney Transplant with COVID Do you want consulting provider notified?: Yes Primary care physician: José Antonio Vail
[2021-04-19 12:01] LABS: Glucose,Whole Blood 254 mg/dL (75-99)
[2021-04-19 13:14] LABS: Basophils # (A) 0 X 10*3/uL (0.00-0.10); Basophils % (A) 0 %; Eosinophils # (A) 0 X 10*3/uL (0.04-0.35); Eosinophils % (A) 0 %; HCT 35.6 % (37.2-46.3); HGB 11.8 g/dL (12.0-15.0); Lymphocytes # (A) 0.43 X 10*3/uL (0.90-5.00); Lymphocytes % (A) 17.8 %; MCH 29.1 pg (27.0-32.0); MCHC 33.1 g/dL (32.0-37.0); MCV 87.7 fL (80.0-97.0); Mean Platelet Volume 11.8 fL (9.5-12.2); Monocytes # (A) 0.11 X 10*3/uL (0.20-1.00); Monocytes % (A) 4.6 %; Neutrophils # (A) 1.85 X 10*3/uL (1.80-7.70); Neutrophils % (A) 76.8 %; Platelet Count 91 X 10*3/uL (140-440); RBC 4.06 X 10*6/uL (4.10-5.20); RDW 12.6 % (11.5-14.5); WBC 2.41 X 10*3/uL (4.50-10.00)
[2021-04-19 13:22] VITALS: BMI 35.9
--- NOTE | 2021-04-19 14:51 | PN ---
PROGRESS NOTE DATE OF SERVICE: 04/19/2021 REASON FOR FOLLOW UP: Covid 19 infection. INTERVAL HISTORY: Patient is afebrile. The patient is currently breathing slightly comfortably. Patient denies having any chest pain. No worsening cough. No abdominal pain. No diarrhea. PHYSICAL EXAMINATION: Blood pressure 105/71, pulse 73, temperature 98.4. 94% on room air. General description is middle-aged female up in the bed in no distress. Respiratory system: Unlabored breathing, decreased intensity of breath sounds with no wheeze. Heart S1, S2. Regular rate and rhythm. Abdomen soft, no tenderness. LAB: 0.36, creatinine 1.2, . DIAGNOSTIC IMPRESSION AND PLAN: Patient with acute COVID-19 infection. The patient has received monoclonal antibiotic therapy and multivitamin, zinc on discharge and close outpatient followup. She has been advised to monitor O2 saturation and if it falls below 92, come to the hospital right away. Continue supportive care. MMODL / IJN: [id number] /
== END 2021-04-19 12:43 | disposition home or self-care (01) ==
LOC: EC 18:21 → SUPCPDRO 18:21 → 6NMEDSUR 04-18
PROVIDERS: ADMIT Internal Medicine; ATTEND Internal Medicine
DX: U07.1 COVID-19 (principal); J12.82 Pneumonia due to coronavirus disease 2019; E11.65 Type 2 diabetes mellitus with hyperglycemia; E11.22 Type 2 diabetes mellitus with diabetic chronic kidney disease; I12.0 Hypertensive chronic kidney disease with stage 5 chronic kidney disease or end stage renal disease; N17.9 Acute kidney failure, unspecified; N18.6 End stage renal disease; Q89.9 Congenital malformation, unspecified; E78.5 Hyperlipidemia, unspecified; E87.1 Hypo-osmolality and hyponatremia; E83.42 Hypomagnesemia; D61.818 Other pancytopenia; K21.9 Gastro-esophageal reflux disease without esophagitis; E66.9 Obesity, unspecified; Z68.35 Body mass index [BMI] 35.0-35.9, adult; M10.9 Gout, unspecified; F41.9 Anxiety disorder, unspecified; J30.2 Other seasonal allergic rhinitis; Z79.899 Other long term (current) drug therapy; Z79.4 Long term (current) use of insulin; Z88.5 Allergy status to narcotic agent; Z94.0 Kidney transplant status; Z96.41 Presence of insulin pump (external) (internal); Z83.3 Family history of diabetes mellitus; Z82.5 Family history of asthma and other chronic lower respiratory diseases; Z82.49 Family history of ischemic heart disease and other diseases of the circulatory system
CPT/HCPCS: 99285; 96366; 96367 ×2; 96372; 96368; 96361; 96365; 36415 ×2; 94640; 85379; 80053 ×2; 80048; 80197; 82728; 82009; 83605; 83615 ×2; 83735 ×3; 85025 ×3; 85610; 85730; 86140 ×2; 87040; 83036; 84145; 87635; 71045 ×2; G0378 ×2; M0245; J2543; J0456; J7507 ×2; J1650; J0696; J3475; J8540 ×2; J7512 ×3; J3490

== ENCOUNTER → 2021-05-07 | Outpatient (CLI) | payer MEDICARE ==
[2021-05-07 10:09] LABS: Appearance,Urine Cloudy (Clear); Bacteria,Urine Few /hpf; Bilirubin,Urine Negative (Negative); Blood,Urine Negative (Negative); Color,Urine Yellow; Glucose,Urine (UA) 2+ (Negative); Hyaline Casts,Urine 3 /lpf (0-2); Ketones,Urine Negative (Negative); Leukocyte Esterase,Urine Large (Negative); Mucus,Urine Occasional /hpf; Nitrite,Urine Negative (Negative); PH, Urine 5.5 (5.0-8.0); Protein,Urine 1+ (Negative); RBC,Urine 5 /hpf (0-5); Specific Gravity,Urine 1.024 (1.001-1.035); Squamous Epithelial Cell,Urine 20 /hpf (0-4); Urobilinogen,Urine <2.0 mg/dL (<2.0); WBC,Urine 48 /hpf (0-5)
[2021-05-07 14:42] LABS: Basophils # (A) 0.03 X 10*3/uL (0.00-0.10); Basophils % (A) 0.6 %; Eosinophils # (A) 0.09 X 10*3/uL (0.04-0.35); Eosinophils % (A) 1.7 %; HCT 40.5 % (37.2-46.3); HGB 12.7 g/dL (12.0-15.0); Lymphocytes # (A) 1.06 X 10*3/uL (0.90-5.00); Lymphocytes % (A) 19.5 %; MCH 28.4 pg (27.0-32.0); MCHC 31.4 g/dL (32.0-37.0); MCV 90.6 fL (80.0-97.0); Mean Platelet Volume 10.4 fL (9.5-12.2); Monocytes # (A) 0.28 X 10*3/uL (0.20-1.00); Monocytes % (A) 5.2 %; Neutrophils # (A) 3.95 X 10*3/uL (1.80-7.70); Neutrophils % (A) 72.6 %; Platelet Count 144 X 10*3/uL (140-440); RBC 4.47 X 10*6/uL (4.10-5.20); RDW 14.1 % (11.5-14.5); WBC 5.43 X 10*3/uL (4.50-10.00)
[2021-05-07 17:46] LABS: African American GFR (CKD) 61.8 (60.0-200.0); Albumin 3.7 g/dL (3.8-4.9); Anion Gap 12.5 mmol/L (10.00-18.00); BUN/Creat Ratio 11.3 Ratio (12.00-20.00); Blood Urea Nitrogen 13.9 mg/dL (9.0-27.0); Calcium 9.1 mg/dL (8.7-10.3); Carbon Dioxide 25.4 mmol/L (20.0-27.5); Non-African American GFR(CKD) 53.3 (60.0-200.0)
== END | disposition home or self-care (01) ==
LOC: LABWHC1 08:28
PROVIDERS: ATTEND Allergy & Immunology
DX: E55.9 Vitamin D deficiency, unspecified (principal); D64.9 Anemia, unspecified; N39.0 Urinary tract infection, site not specified; Z94.0 Kidney transplant status
CPT/HCPCS: 36415; 80048; 80197; 81001; 82040; 82306; 85025

== ENCOUNTER → 2021-05-28 | Outpatient (CLI) | payer MEDICARE | END | disposition home or self-care (01) | LOC: LABWHC1 09:30 | PROVIDERS: ATTEND Internal Medicine Nephrology | DX: Z94.0 Kidney transplant status (principal) | CPT/HCPCS: 36415; 87086 ==

== ENCOUNTER → 2022-10-05 | Outpatient (CLI) | payer BC ==
[2022-10-05 19:28] LABS: Creatinine,Urine Random 111.7 mg/dL; Protein/Creatinine Ratio,Urine 0.081
[2022-10-06 02:06] LABS: Albumin 4.3 g/dL (3.8-4.9); Anion Gap 12.5 mmol/L (10.00-18.00); BUN/Creat Ratio 17.31 Ratio (12.00-20.00); Blood Urea Nitrogen 22.5 mg/dL (9.0-27.0); Calcium 9.5 mg/dL (8.7-10.3); Carbon Dioxide 24.5 mmol/L (20.0-27.5); Non-African American GFR(CKD) 49.2 (60.0-200.0); Phosphorus 3.9 mg/dL (2.4-5.1); Potassium 4.5 mmol/L (3.5-5.5)
[2022-10-06 02:11] LABS: Basophils # (A) 0.04 X 10*3/uL (0.00-0.10); Basophils % (A) 0.5 %; Eosinophils # (A) 0.04 X 10*3/uL (0.04-0.35); Eosinophils % (A) 0.5 %; HGB 13.6 g/dL (12.0-15.0); Immature Grans, Automated 0.3 %; Lymphocytes # (A) 1.13 X 10*3/uL (0.90-5.00); Lymphocytes % (A) 15.4 %; MCH 28.8 pg (27.0-32.0); MCHC 30.2 g/dL (32.0-37.0); MCV 95.3 fL (80.0-97.0); Mean Platelet Volume 9.9 fL (9.5-12.2); Monocytes # (A) 0.31 X 10*3/uL (0.20-1.00); Monocytes % (A) 4.2 %; NRBC Per 100 WBC 0 /100 WBCS (0.0-0.0); Neutrophils # (A) 5.78 X 10*3/uL (1.80-7.70); Neutrophils % (A) 79.1 %; Platelet Count 202 X 10*3/uL (140-440); RBC 4.72 X 10*6/uL (4.10-5.20); RDW 13.4 % (11.5-14.5); WBC 7.32 X 10*3/uL (4.50-10.00)
[2022-10-06 02:16] LABS: Appearance,Urine Clear (Clear); Bilirubin,Urine Negative (Negative); Blood,Urine Negative (Negative); Color,Urine Yellow (Yellow); Ketones,Urine Negative (Negative); Nitrite,Urine Negative (Negative); Urobilinogen,Urine 0.2 (0.2,1.0)
[2022-10-06 02:28] LABS: Bacteria,Urine None Seen /HPF (None Seen)
== END | disposition home or self-care (01) ==
LOC: LABWHC1 16:11
PROVIDERS: ATTEND Internal Medicine
DX: Z94.0 Kidney transplant status (principal)
CPT/HCPCS: 36415; 80069; 80197; 81001; 82306; 82570; 83970; 84156; 85025

== ENCOUNTER → 2022-12-29 | Outpatient (CLI) | payer BC ==
[2022-12-29 21:03] LABS: % Iron Saturation 20.22 (12.00-45.00); Albumin 4.3 d/dL (3.8-4.9); BUN/Creat Ratio 15.93 Ratio (12.00-20.00); Blood Urea Nitrogen 22.3 mg/dL (9.0-27.0); Calcium 9.5 mg/dL (8.7-10.3); Carbon Dioxide 22.7 mmol/L (21.6-31.8); Chloride 105 mmol/L (96-109); Glucose 105 mg/dL (70-110); Iron 55 UG/DL (50-170); Magnesium 2.1 mg/dL (1.5-2.4); Phosphorus 3.2 mg/dL (2.4-5.1); Potassium 4.6 mmol/L (3.5-5.5); Sodium 140 mmol/L (135-145); Total Iron Binding Capacity 272 UG/DL (228-460); Uric Acid 7.2 mg/dL (2.9-7.7)
[2022-12-29 21:19] LABS: Basophils # (A) 0.03 X 10*3/uL (0.00-0.10); Basophils % (A) 0.3 %; Eosinophils # (A) 0.06 X 10*3/uL (0.04-0.35); Eosinophils % (A) 0.6 %; HCT 43.9 % (37.2-46.3); HGB 14.4 d/dL (12.0-15.0); Lymphocytes # (A) 1.09 X 10*3/uL (0.90-5.00); Lymphocytes % (A) 11.5 %; MCH 28.8 pg (27.0-32.0); MCHC 32.8 d/dL (32.0-37.0); MCV 87.8 FL (80.0-97.0); Mean Platelet Volume 9.9 FL (9.5-12.2); Monocytes # (A) 0.35 X 10*3/uL (0.20-1.00); Monocytes % (A) 3.7 %; NRBC Per 100 WBC 0 X 10*3/uL (0.00-0.01); Neutrophils # (A) 7.93 X 10*3/uL (1.80-7.70); Neutrophils % (A) 83.4 %; Platelet Count 198 X 10*3/uL (140-440); RDW 13.3 % (11.5-14.5); WBC 9.51 X 10*3/uL (4.50-10.00)
[2022-12-29 22:45] LABS: Appearance,Urine Clear (Clear); Bilirubin,Urine Negative (Negative); Blood,Urine Negative (Negative); Color,Urine Yellow (Yellow); Ketones,Urine Negative (Negative); Nitrite,Urine Negative (Negative); PH, Urine 5.5; Specific Gravity,Urine 1.031 (1.001-1.030); Urobilinogen,Urine 0.2
[2022-12-29 23:42] LABS: Microalbumin Creatinine Ratio <11 mg/g Cr (0-30)
== END | disposition home or self-care (01) ==
LOC: LABWHC1 16:08
DX: E55.9 Vitamin D deficiency, unspecified (principal); N25.81 Secondary hyperparathyroidism of renal origin; M10.9 Gout, unspecified; N39.0 Urinary tract infection, site not specified; D63.1 Anemia in chronic kidney disease; N18.31 Chronic kidney disease, stage 3a; D84.9 Immunodeficiency, unspecified; R80.9 Proteinuria, unspecified; Z94.0 Kidney transplant status
CPT/HCPCS: 36415; 80048; 80197; 81003; 82040; 82043; 82306; 82570; 82728; 83540; 83550; 83735; 83970; 84100; 84550; 85025

== ENCOUNTER → 2023-01-19 | Outpatient (CLI) | payer BC ==
--- NOTE | 2023-01-19 22:30 | US ---
EXAMINATION TYPE: US kidneys/renal and bladder DATE OF EXAM: 01/19/2023 COMPARISON: Abdominal ultrasound 03/24/2020 CLINICAL INDICATION: Female, 47 years old with history of N18.31 STAGE 3 CHR KIDNEY DISEASE; CKD. Tra nsplant kidney May 2019. EXAM MEASUREMENTS: Right Kidney: 7.2 x 4.1 x 3.5 cm Left Kidney: Not well seen Transplant kidney (Midline Pelvis): 11.1 x 4.3 x 3.5cm Right Kidney: Atrophic Left Kidney: Not well seen Transplant Kidney: appears wnl Bladder: Limited due to not being full, appears wnl Bilateral Jets seen: No Unremarkable appearance of the midline transplant kidney. No hydronephrosis, solid mass, nephrolithia sis is identified. The [place] right kidney is atrophic with cortical thinning and poor cortical medullary differentiatio n. No hydronephrosis or nephrolithiasis identified. No obvious solid mass. Left kidney is not visuali zed. Evaluation of the bladder limited due to underdistention. It appears anechoic without gross abno rmality. IMPRESSION: 1. No hydronephrosis or nephrolithiasis. 2. Unremarkable appearance of the transplant kidney. 3. Medical renal disease/atrophy of the [place] right kidney. 4. 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
== END | disposition home or self-care (01) ==
LOC: RADUSWWP 16:07
PROVIDERS: ATTEND Internal Medicine Nephrology
DX: N18.31 Chronic kidney disease, stage 3a (principal); N26.1 Atrophy of kidney (terminal); Z94.0 Kidney transplant status
CPT/HCPCS: 76770

== ENCOUNTER → 2023-03-23 | Outpatient (CLI) | payer BC ==
[2023-03-23 20:28] LABS: Microalbumin Creatinine Ratio <8 mg/g Cr (0-30)
[2023-03-23 20:51] LABS: ALT 23 U/L (8-44); AST 11 U/L (13-35); Albumin 4.2 d/dL (3.8-4.9); Albumin/Globulin Ratio 1.75 Ratio (1.60-3.17); Alkaline Phosphatase 94 U/L (41-126); Blood Urea Nitrogen 22.1 mg/dL (9.0-27.0); C Reactive Protein <0.30 mg/dL (0.00-0.80); Calcium 9.8 mg/dL (8.7-10.3); Carbon Dioxide 23.4 mmol/L (21.6-31.8); Chloride 99 mmol/L (96-109); Creatine Kinase 27 U/L (26-186); Globulin 2.4 d/dL (1.6-3.3); Glucose 199 mg/dL (70-110); Iron 49 UG/DL (50-170); Magnesium 1.8 mg/dL (1.5-2.4); Phosphorus 4.7 mg/dL (2.4-5.1); Potassium 4.2 mmol/L (3.5-5.5); Sodium 138 mmol/L (135-145); T4, Free (Free Thyroxine) 1.17 ng/dL (0.80-1.80); Total Bilirubin 0.3 mg/dL (0.3-1.2); Total Iron Binding Capacity 262 UG/DL (228-460); Total Protein 6.6 d/dL (6.2-8.2); Uric Acid 7.3 mg/dL (2.9-7.7)
[2023-03-23 20:52] LABS: Appearance,Urine Clear (Clear); Bacteria,Urine Trace; Bilirubin,Urine Negative (Negative); Blood,Urine Trace (Negative); Color,Urine Yellow (Yellow); Ketones,Urine Trace (Negative); Nitrite,Urine Negative (Negative); Specific Gravity,Urine >1.035 (1.001-1.030); Urobilinogen,Urine 0.2
== END | disposition home or self-care (01) ==
LOC: LABWHC1 16:09
PROVIDERS: ATTEND Family Medicine
DX: Z00.00 Encounter for general adult medical examination without abnormal findings (principal); E55.9 Vitamin D deficiency, unspecified; N25.81 Secondary hyperparathyroidism of renal origin; M10.9 Gout, unspecified; N39.0 Urinary tract infection, site not specified; D63.1 Anemia in chronic kidney disease; N18.31 Chronic kidney disease, stage 3a; E78.5 Hyperlipidemia, unspecified; M25.50 Pain in unspecified joint; R53.83 Other fatigue
CPT/HCPCS: 36415; 80053; 81001; 82043; 82306; 82550; 82570; 82607; 82728; 82746; 83036; 83540; 83550; 83735; 83970; 84100; 84439; 84443; 84550; 85652; 86140

== ENCOUNTER → 2023-03-29 | Outpatient (CLI) | payer BC ==
[2023-03-30 02:33] LABS: Blood Urea Nitrogen 26.1 mg/dL (9.0-27.0); Calcium 9.8 mg/dL (8.7-10.3); Carbon Dioxide 23.2 mmol/L (21.6-31.8); Chloride 102 mmol/L (96-109); Glucose 90 mg/dL (70-110); Potassium 5.2 mmol/L (3.5-5.5); Sodium 138 mmol/L (135-145)
== END | disposition home or self-care (01) ==
LOC: LABWHC1 16:03
PROVIDERS: ATTEND Internal Medicine Nephrology
DX: N18.31 Chronic kidney disease, stage 3a (principal); Z94.0 Kidney transplant status
CPT/HCPCS: 36415; 80048; 80197

== ENCOUNTER → 2023-08-02 | Outpatient (CLI) | payer BC ==
[2023-08-03 04:09] LABS: Basophils # (A) 0.02 X 10*3/uL (0.00-0.10); Basophils % (A) 0.3 %; Eosinophils # (A) 0.03 X 10*3/uL (0.04-0.35); Eosinophils % (A) 0.5 %; HCT 41.9 % (37.2-46.3); HGB 13.4 g/dL (12.0-15.0); Lymphocytes # (A) 0.71 X 10*3/uL (0.90-5.00); MCH 27.8 pg (27.0-32.0); MCV 86.9 FL (80.0-97.0); Mean Platelet Volume 10.2 FL (9.5-12.2); Monocytes # (A) 0.19 X 10*3/uL (0.20-1.00); Monocytes % (A) 3.2 %; NRBC Per 100 WBC 0 X 10*3/uL (0.00-0.01); Neutrophils # (A) 4.93 X 10*3/uL (1.80-7.70); Neutrophils % (A) 83.7 %; Platelet Count 213 X 10*3/uL (140-440); RBC 4.82 X 10*6/uL (4.10-5.20); RDW 13.3 % (11.5-14.5)
[2023-08-03 04:40] LABS: Blood Urea Nitrogen 24.9 mg/dL (9.0-27.0); Carbon Dioxide 23.5 mmol/L (21.6-31.8); Chloride 104 mmol/L (96-109); Glucose 273 mg/dL (70-110); Phosphorus 3.6 mg/dL (2.4-5.1); Potassium 4.8 mmol/L (3.5-5.5); Sodium 139 mmol/L (135-145)
[2023-08-03 04:41] LABS: Albumin 4.1 g/dL (3.8-4.9); Calcium 9.8 mg/dL (8.7-10.3)
== END | disposition home or self-care (01) ==
LOC: LABWHC1 16:09
PROVIDERS: ATTEND Internal Medicine
DX: D84.9 Immunodeficiency, unspecified (principal); Z94.0 Kidney transplant status
CPT/HCPCS: 36415; 80069; 80197; 85025

== ENCOUNTER → 2024-02-02 | Outpatient (CLI) | payer BC ==
[2024-02-03 02:07] LABS: Basophils # (A) 0.03 X 10*3/uL (0.00-0.10); Basophils % (A) 0.4 %; Eosinophils # (A) 0.06 X 10*3/uL (0.04-0.35); Eosinophils % (A) 0.8 %; HCT 40.9 % (37.2-46.3); Lymphocytes # (A) 1.27 X 10*3/uL (0.90-5.00); Lymphocytes % (A) 17.3 %; MCH 27.3 pg (27.0-32.0); MCHC 31.8 g/dL (32.0-37.0); MCV 85.9 FL (80.0-97.0); Monocytes # (A) 0.35 X 10*3/uL (0.20-1.00); Monocytes % (A) 4.8 %; NRBC Per 100 WBC 0 X 10*3/uL (0.00-0.01); Neutrophils # (A) 5.62 X 10*3/uL (1.80-7.70); Neutrophils % (A) 76.4 %; Platelet Count 234 X 10*3/uL (140-440); RBC 4.76 X 10*6/uL (4.10-5.20); RDW 13.2 % (11.5-14.5); WBC 7.35 X 10*3/uL (4.50-10.00)
[2024-02-03 02:55] LABS: Microalbumin Creatinine Ratio <10 mg/g Cr (0-30)
[2024-02-03 03:04] LABS: % Iron Saturation 21.79 (12.00-45.00); Albumin 4.3 g/dL (3.8-4.9); BUN/Creat Ratio 20.83 Ratio (12.00-20.00); Calcium 9.5 mg/dL (8.7-10.3); Carbon Dioxide 22.8 mmol/L (21.6-31.8); Chloride 104 mmol/L (96-109); Glucose 122 mg/dL (70-110); Iron 61 UG/DL (50-170); Magnesium 1.7 mg/dL (1.5-2.4); Phosphorus 4.4 mg/dL (2.4-5.1); Potassium 4.3 mmol/L (3.5-5.5); Sodium 141 mmol/L (135-145); Total Iron Binding Capacity 280 UG/DL (228-460); Uric Acid 7.6 mg/dL (2.9-7.7)
[2024-02-03 04:01] LABS: Appearance,Urine Clear (Clear); Bilirubin,Urine Negative (Negative); Blood,Urine Negative (Negative); Color,Urine Yellow (Yellow); Ketones,Urine Negative (Negative); Nitrite,Urine Negative (Negative); Specific Gravity,Urine 1.029 (1.001-1.030); Urobilinogen,Urine 0.2 E.U./DL
[2024-02-03 04:11] LABS: Bacteria,Urine None Seen (None Seen)
== END | disposition home or self-care (01) ==
LOC: LABWHC1 16:01
PROVIDERS: ATTEND Internal Medicine Nephrology
DX: D84.9 Immunodeficiency, unspecified (principal); N18.31 Chronic kidney disease, stage 3a; Z94.0 Kidney transplant status
CPT/HCPCS: 36415; 80048; 80069; 80197; 81001; 82043; 82306; 82570; 82728; 83540; 83550; 83735; 83970; 84550; 85025

== ENCOUNTER 2024-05-23 06:03 | Day surgery (SDC) | payer BC ==
[~2024-05-23 06:03] MED LIST changes: -HEPARIN SODIUM,PORCINE 5,000 UNIT/ML 1 ML VIAL SQ ONE; -LACTATED RINGERS 1,000 ML IV SCH; +LIDOCAINE 1% (10MG/ML) FOR IV START INTRADERMA PRN; -LIDOCAINE 1% 20 ML VIAL (10MG/ML) FOR IV START INTRADERMA PRN; -ONDANSETRON 4 MG/2 ML VIAL IVP ONE; -ceFAZolin 3 GM in SODIUM CHLORIDE 0.9% 100 ML IVPB ONE; -fentaNYL (PF) 50 MCG/ML 2 ML AMP IV PRN
[2024-05-23] MEDS: LACTATED RINGERS 1,000 ML IV SCH (06:45)
[2024-05-23 06:49] LABS: Glucose,Whole Blood 174 mg/dL (70-110)
[2024-05-23 06:59] VITALS: TEMP 96.9
[2024-05-23] MEDS ORDERED: PROPOFOL 10 MG/ML 20 ML VIAL IV ONE (07:00)
[2024-05-23] MEDS ORDERED: LIDOCAINE 1% INJ 10MG/ML (20 ML MDV) ONE (07:00)
--- NOTE | 2024-05-23 07:12 | P.PCN ---
Date of Procedure: 05/23/24 Procedure(s) Performed: BRIEF HISTORY: Patient is a 48-year-old, pleasant, male scheduled for an upper endoscopy as a part of evaluation of longstanding history of GERD. She has been on omeprazole 20 mg daily for 7 years. For the last 5 days she has been having intermittent nausea vomiting and intermittent chest pain. She has history of gastric lap band surgery and prior history of gastric sleeve surgery.. PROCEDURE PERFORMED: Esophagogastroduodenoscopy with biopsy. PREOPERATIVE DIAGNOSIS: History of GERD/intermittent nausea vomiting and chest pain. IV sedation per anesthesia. PROCEDURE: After informed consent was obtained, the patient was brought into the endoscopy unit. IV sedation was administered by Anesthesia under continuous monitoring. Initially the Olympus GIF-140 video endoscope was inserted into the mouth. Esophagus intubated without any difficulty. It was gradually advanced into the stomach and duodenum and carefully examined. The bulb and the second part of the duodenum appeared normal. The scope at this time was withdrawn to the stomach, adequately insufflated with air, and upon careful examination, mucosa of the antrum, gastritis and biopsies were done from this area. There was evidence of gastric sleeve surgery identified and the mucosa in the gastric sleeve appeared normal. There was also evidence of Lap-Band surgery identified. The scope was then withdrawn into the esophagus. The GE junction was located at 37 cm from the incisors. There were linear erosions in the distal esophagus consistent with LA grade B reflux esophagitis. Apices were also done from the distal esophagus. Rest of the esophagus appeared normal and the patient tolerated the procedure well. IMPRESSION: 1. Mild antral gastritis. 2. Linear erosions in the distal esophagus consistent with LA grade B reflux esophagitis. RECOMMENDATIONS: The findings of this examination were discussed with the patient as well as her family. She was advised to follow-up with the biopsy results. Increase omeprazole to 20 mg twice daily to be taken half hour before breakfast and dinnertime and follow antireflux measures. If she still has persistent symptoms she was advised to follow-up in the office for further management..
[2024-05-23 07:16] LABS: Basophils # (A) 0.1 k/uL (0-0.2); Basophils % (A) 1 %; Eosinophils # (A) 0.1 k/uL (0-0.7); Eosinophils % (A) 1 %; HCT 44.8 % (34.0-46.0); HGB 14.4 gm/dL (11.4-16.0); Lymphocytes # (A) 1.6 k/uL (1.0-4.8); Lymphocytes % (A) 23 %; MCH 27.2 pg (25.0-35.0); MCHC 32.1 g/dL (31.0-37.0); Mean Platelet Volume 7.1; Monocytes # (A) 0.3 k/uL (0-1.0); Monocytes % (A) 4 %; Neutrophils # (A) 4.9 k/uL (1.3-7.7); Neutrophils % (A) 70 %; Platelet Count 184 k/uL (150-450); RBC 5.27 m/uL (3.80-5.40); RDW 13.7 % (11.5-15.5); WBC 6.9 k/uL (3.8-10.6)
[2024-05-23 07:25] LABS: Appearance,Urine Clear (Clear); Bacteria,Urine Rare /hpf; Bilirubin,Urine Negative (Negative); Blood,Urine Negative (Negative); Budding Yeast,Urine Rare /hpf; Color,Urine Colorless; Glucose,Urine (UA) 4+ (Negative); Ketones,Urine Negative (Negative); Leukocyte Esterase,Urine Moderate (Negative); Mucus,Urine Rare /hpf; Nitrite,Urine Negative (Negative); PH, Urine 5.5 (5.0-8.0); Protein,Urine Trace (Negative); RBC,Urine 2 /hpf (0-5); Squamous Epithelial Cell,Urine 3 /hpf (0-4); Urobilinogen,Urine <2.0 mg/dL (<2.0); WBC,Urine 53 /hpf (0-5)
[2024-05-23 07:34] VITALS: BP 102/67; PULSE 69; RESP 16
[2024-05-23 07:55] LABS: ALT 23 U/L (4-34); AST 22 U/L (14-36); African American GFR (CKD) 40 (>60 ml/min/1.73 sqM); Albumin 4.5 g/dL (3.5-5.0); Alkaline Phosphatase 86 U/L (38-126); Anion Gap 9 mmol/L; Blood Urea Nitrogen 21 mg/dL (7-17); Calcium 9.5 mg/dL (8.4-10.2); Carbon Dioxide 27 mmol/L (22-30); Chloride 106 mmol/L (98-107); Creatine Kinase 47 U/L (30-135); Glucose 185 mg/dL (74-99); Non-African American GFR(CKD) 35 (>60 ml/min/1.73 sqM); Potassium 3.8 mmol/L (3.5-5.1); Sodium 142 mmol/L (137-145); Total Bilirubin 0.3 mg/dL (0.2-1.3); Total Protein 7.3 g/dL (6.3-8.2)
[2024-05-23 07:56] LABS: Magnesium 1.8 mg/dL (1.6-2.3); Phosphorus 5.1 mg/dL (2.5-4.5); Uric Acid 7.4 mg/dL (3.7-7.4)
[2024-05-23 10:41] LABS: Microalbumin Creatinine Ratio <10 mg/g Cr (0-30)
[2024-05-23 16:33] LABS: Chol/HDL Ratio 6.56 Ratio
[2024-05-23 16:34] LABS: % Iron Saturation 30.11 (12.00-45.00)
== END 2024-05-23 07:55 | disposition home or self-care (01) ==
LOC: ORWHC2ENDO 06:03
PROVIDERS: ATTEND Internal Medicine Gastroenterology
DX: K21.9 Gastro-esophageal reflux disease without esophagitis (principal); K22.10 Ulcer of esophagus without bleeding; K29.50 Unspecified chronic gastritis without bleeding; I10 Essential (primary) hypertension; E11.9 Type 2 diabetes mellitus without complications; E78.5 Hyperlipidemia, unspecified; N28.9 Disorder of kidney and ureter, unspecified; F41.9 Anxiety disorder, unspecified; Z79.52 Long term (current) use of systemic steroids; Z79.85 Long-term (current) use of injectable non-insulin antidiabetic drugs; Z79.4 Long term (current) use of insulin; Z79.899 Other long term (current) drug therapy; Z94.0 Kidney transplant status; Z98.84 Bariatric surgery status; Z88.5 Allergy status to narcotic agent
CPT/HCPCS: 80061; 80053; 80197; 82728; 82550; 83540; 83550; 83735; 84100; 84550; 85025; 81001; 83721; 82306; 83970; 82043; 82570; 43239; J2003; J2704; 88305

== ENCOUNTER → 2024-06-22 | Outpatient (CLI) | payer BC ==
[2024-06-23 08:40] LABS: Albumin 4.5 g/dL (3.8-4.9); BUN/Creat Ratio 13.19 Ratio (12.00-20.00); Blood Urea Nitrogen 21.1 mg/dL (9.0-27.0); Calcium 9.8 mg/dL (8.7-10.3); Carbon Dioxide 24.1 mmol/L (21.6-31.8); Chloride 107 mmol/L (96-109); Glucose 109 mg/dL (70-110); Phosphorus 3.7 mg/dL (2.4-5.1); Potassium 4.3 mmol/L (3.5-5.5); Sodium 143 mmol/L (135-145)
== END | disposition home or self-care (01) ==
LOC: RADXRMAIN 10:25
PROVIDERS: ATTEND Family Medicine
DX: D84.9 Immunodeficiency, unspecified (principal); Z94.0 Kidney transplant status; Z79.899 Other long term (current) drug therapy
CPT/HCPCS: 80069; 80197